=== PATIENT | female | born 1970 | race Caucasian/White ===

== ENCOUNTER 2018-02-07 21:38 | Observation (INO) | payer OTHER ==
[~2018-02-07] VITALS: Ht 165.1 cm; Wt 99.8 kg
[~2018-02-07 21:38] MED LIST: OXYC-323 PO
--- NOTE | 2018-02-07 22:29 | PHYS DOC ---
Adult General Chief Complaint Chief Complaint: SHORTNESS OF BREATH HPI HPI Patient is a 47 year old female who presents with SOB and epigastric pain. Patient had onset of intermittent SOB with epigastric pain two weeks ago. 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 Today while at work around 1pm, she had reonset SOB with epigastric pain which has progressed. Currently, her pain is 8/10 in severity. no vomiting or diarrhea. No fevers. No cough Review of Systems Review of Systems Constitutional: Denies fever or chills Eyes: Denies change in visual acuity, redness, or eye pain HENT: Denies nasal congestion or sore throat Respiratory: With shortness of breath, denies cough Cardiovascular: Denies chest pain or palpitations GI: With epigastric abdominal pain, nausea,no vomiting, bloody stools or diarrhea : Denies dysuria or hematuria Musculoskeletal: Denies back pain or joint pain Integument: Denies rash or skin lesions Neurologic: Denies headache, focal weakness or sensory changes Endocrine: Denies polyuria or polydipsia All other systems were reviewed and found to be within normal limits, except as documented in this note. Current Medications Current Medications Current Medications Medications (Trade) Dose Ordered Sig/Shane Start Time Stop Time Status Last Admin Dose Admin Fentanyl Citrate (Fentanyl 2ml Vial) 50 mcg 1X ONCE 02/07/18 22:45 02/07/18 22:46 DC 02/07/18 23:02 50 MCG Info (CONTRAST GIVEN -- Rx MONITORING) 1 each PRN DAILY PRN 02/08/18 00:45 02/09/18 17:08 DC Iohexol (Omnipaque 300 Mg/ml) 60 ml 1X ONCE 02/08/18 00:45 02/08/18 00:46 DC 02/08/18 00:57 60 ML Potassium Chloride (KCl Oral Soln) 40 meq 1X ONCE 02/08/18 02:30 02/08/18 02:31 DC 02/08/18 02:29 40 MEQ Allergies Allergies Physical Exam Physical Exam Constitutional: Well developed, well nourished, no acute distress, anxious with increased work of breathing, non-toxic appearance. HENT: Normocephalic, atraumatic, bilateral external ears normal, oropharynx moist, no oral exudates, nose normal. Eyes: PERRLA, EOMI, conjunctiva normal, no discharge. Neck: Normal range of motion, no tenderness, supple, no stridor. Cardiovascular:Heart rate regular rhythm, no murmur Lungs & Thorax: Bilateral breath sounds clear to auscultation Abdomen: Bowel sounds normal, soft, with LUQ and epigastric tenderness, no masses, no pulsatile masses. Skin: Warm, dry, no erythema, no rash. Back: No tenderness, no CVA tenderness. Extremities: No tenderness, no cyanosis, no clubbing, ROM intact, no edema. Neurologic: Alert and oriented X 3, normal motor function, normal sensory function, no focal deficits noted. Psychologic: Affect normal, judgement normal, mood normal. Current Patient Data Vital Signs Vital Signs Date Time Temp Pulse Resp B/P (MAP) Pulse Ox O2 Delivery O2 Flow Rate FiO2 02/08/18 02:38 65 20 143/66 (91) 100 Room Air 02/07/18 22:25 97.8 97.8 Lab Values Laboratory Tests Test 02/07/18 23:00 White Blood Count 15.4 x10^3/uL (4.0-11.0) H Red Blood Count 4.40 x10^6/uL (3.50-5.40) Hemoglobin 13.9 g/dL (12.0-15.5) Hematocrit 40.2 % (36.0-47.0) Mean Corpuscular Volume 91 fL (79-100) Mean Corpuscular Hemoglobin 32 pg (25-35) Mean Corpuscular Hemoglobin Concent 35 g/dL (31-37) Red Cell Distribution Width 13.3 % (11.5-14.5) Platelet Count 388 x10^3/uL (140-400) Neutrophils (%) (Auto) 68 % (31-73) Lymphocytes (%) (Auto) 26 % (24-48) Monocytes (%) (Auto) 4 % (0-9) Eosinophils (%) (Auto) 1 % (0-3) Basophils (%) (Auto) 0 % (0-3) Neutrophils # (Auto) 10.5 x10^3uL (1.8-7.7) H Lymphocytes # (Auto) 4.0 x10^3/uL (1.0-4.8) Monocytes # (Auto) 0.7 x10^3/uL (0.0-1.1) Eosinophils # (Auto) 0.2 x10^3/uL (0.0-0.7) Basophils # (Auto) 0.0 x10^3/uL (0.0-0.2) D-Dimer (Clare) < 0.27 ug/mlFEU Urine Collection Type Unknown Urine Color Yellow Urine Clarity Clear Urine pH 6.0 Urine Specific [place] 1.015 Urine Protein Negative mg/dL (NEG-TRACE) Urine Glucose (UA) Negative mg/dL (NEG) Urine Ketones (Stick) Negative mg/dL (NEG) Urine Blood Negative (NEG) Urine Nitrite Negative (NEG) Urine Bilirubin Negative (NEG) Urine Urobilinogen Dipstick 0.2 mg/dL (0.2 mg/dL) Urine Leukocyte Esterase Negative (NEG) Urine RBC 0 /HPF (0-2) Urine WBC 0 /HPF (0-4) Urine Squamous Epithelial Cells Few /LPF Urine Bacteria 0 /HPF (0-FEW) Urine Mucus Slight /LPF Sodium Level 132 mmol/L (136-145) L Potassium Level 3.3 mmol/L (3.5-5.1) L Chloride Level 102 mmol/L (98-107) Carbon Dioxide Level 21 mmol/L (21-32) Anion Gap 9 (6-14) Blood Urea Nitrogen 20 mg/dL (7-20) Creatinine 1.1 mg/dL (0.6-1.0) H Estimated GFR (Cockcroft-Gault) 53.0 BUN/Creatinine Ratio 18 (6-20) Glucose Level 229 mg/dL (70-99) H Calcium Level 9.5 mg/dL (8.5-10.1) Total Bilirubin 0.7 mg/dL (0.2-1.0) Aspartate Amino Transferase (AST) 13 U/L (15-37) L Alanine Aminotransferase (ALT) 23 U/L (14-59) Alkaline Phosphatase 76 U/L (46-116) Troponin I Quantitative < 0.017 ng/mL (0.000-0.055) ZG-Mwa-D-Type Natriuretic Peptide 29 pg/mL (0-124) Total Protein 7.4 g/dL (6.4-8.2) Albumin 3.6 g/dL (3.4-5.0) Albumin/Globulin Ratio 0.9 (1.0-1.7) L Lipase 128 U/L (73-393) Serum Test, Qualitative Negative (NEG) Laboratory Tests 02/07/18 23:00 Laboratory Tests 02/07/18 23:00 EKG EKG ECG 22:23 NSR @ [address]-T wave changes suggestive of ischemia 22:25 NSR @ [address]-T wave changes suggestive of ischemia Radiology/Procedures Radiology/Procedures [facility] [address] [place] [address] IMAGING REPORT Signed PATIENT: JULES VANCE ACCOUNT: [id number] : 1970 LOCATION: ER AGE: 47 SEX: F EXAM STATUS: REG ER ORD. PHYSICIAN: HANY MARCIAL MD REASON: epigastric pain PROCEDURE: CT ABD PELV W/ IV CONTRST ONLY PQRS Compliance statement: One or more of the following individualized dose reduction techniques were utilized for this examination: 1. Automated exposure control. 2. Adjustment of the mA and/or kV according to patient size. 3. Use of iterative reconstruction technique. Indication:EPIGASTRIC PAIN; OMNI 300, 60ML TECHNIQUE: CT abdomen and pelvis with IV contrast with multiplanar reformats. COMPARISON: None FINDINGS: Heart is normal in size. No pericardial or pleural effusion. Clear lung bases. Liver, spleen, pancreas, adrenals within normal limits. Status post cholecystectomy. No nephrolithiasis or hydronephrosis. No enlarged retroperitoneal or pelvic adenopathy. No free pelvic fluid or ascites. No bowel obstruction. Normal appendix. No pneumoperitoneum. Uterus is present. Urinary bladder within normal limits. No suspicious bony lesion. IMPRESSION: No acute findings. Electronically signed by: Oscar Cancino DO (02/08/2018 1:02 AM) [facility] DICTATED and SIGNED BY: OSCAR CANCINO DO DATE: 02/08/18 0059 [facility] [address] [place] [address] IMAGING REPORT Signed PATIENT: JULES VANCE ACCOUNT: [id number] : 1970 LOCATION: ER AGE: 47 SEX: F EXAM STATUS: REG ER ORD. PHYSICIAN: HANY MARCIAL MD REASON: SOB PROCEDURE: CHEST AP ONLY PROCEDURE: CHEST AP ONLY CLINICAL INDICATION: Chest pain x a week COMPARISON: None FINDINGS: No pneumothorax identified. Cardiac and mediastinal contours unremarkable. No pulmonary consolidation or acute airspace disease. No acute osseous abnormalities identified. IMPRESSION: No pulmonary consolidation or acute airspace disease. Electronically signed by: Oscar Cancino DO (02/08/2018 3:35 AM) [facility] DICTATED and SIGNED BY: OSCAR CANCINO DO DATE: 02/08/18 0334 Course & Med Decision Making Course & Med Decision Making Pertinent Labs and Imaging studies reviewed. (See chart for details) Emergency Department course Patient present with epigastric pain and SOB DDx-ACS, biliary colic, GERD, Pancreatitis, obstruction Patient presented with severe shortness of breath. ECG and troponin showed no acute coronary syndrome. Labs remarkable for leukocytosis. Abdominal pelvic CT scan showed no evidence of acute process. 02:55 Patient has persistent complaints of shortness of breath. Records reviewed from [facility] admission 02/03/2018. Patient had CT of the chest which was unremarkable. Patient had echocardiogram was unremarkable. 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 Patient admitted to medicine for further evaluation. 06:[address] Hill who agreed with admission. Dragon Disclaimer Dragon Disclaimer This electronic medical record was generated, in whole or in part, using a voice recognition dictation system. Departure Departure Impression: Primary Impression: SOB (shortness of breath) Additional Impressions: Epigastric abdominal pain Leukocytosis Disposition: ADMITTED INPATIENT Admitting Physician: Other (Carlin Hill MD) Condition: STABLE Referrals: NOAH MULTANI (PCP) Problem Qualifiers HANY MARCIAL MD Feb 07, 2018 22:29
[2018-02-07] MEDS ORDERED: fentaNYL PF VIAL 100 MCG/2 ML VIAL IV ONE (22:45)
[2018-02-07 23:09] LABS: BASO % 0 % (0-3); EOS # 0.2 x10^3/uL (0.0-0.7); EOS % 1 % (0-3); HEMATOCRIT 40.2 % (36.0-47.0); HEMOGLOBIN 13.9 g/dL (12.0-15.5); LYMPH % 26 % (24-48); MEAN CORPUSCULAR HEMOGLOBIN 32 pg (25-35); MEAN CORPUSCULAR HGB CONC 35 g/dL (31-37); MEAN CORPUSCULAR VOLUME 91 fL (79-100); MONO # 0.7 x10^3/uL (0.0-1.1); MONO % 4 % (0-9); NEUT # 10.5 x10^3uL (1.8-7.7); NEUT % 68 % (31-73); PLATELET COUNT 388 x10^3/uL (140-400); RED CELL DISTRIBUTION WIDTH 13.3 % (11.5-14.5); WHITE BLOOD COUNT 15.4 x10^3/uL (4.0-11.0)
[2018-02-07 23:12] LABS: BILIRUBIN,URINE NEGATIVE (NEG); CLARITY,URINE CLEAR; COLOR,URINE YELLOW; NITRITE,URINE NEGATIVE (NEG); PROTEIN,URINE NEGATIVE (NEG-TRACE); UROBILINOGEN,URINE 0.2 mg/dL (0.2 mg/dL)
[2018-02-07 23:18] LABS: CALCIUM 9.5 mg/dL (8.5-10.1); CREATININE 1.1 mg/dL (0.6-1.0); POTASSIUM 3.3 mmol/L (3.5-5.1)
[2018-02-07 23:24] LABS: BACTERIA,URINE 0 /HPF (0-FEW); RBC,URINE 0 /HPF (0-2); SQUAMOUS EPITHELIAL CELL,UR FEW /LPF; WBC,URINE 0 /HPF (0-4)
--- NOTE | 2018-02-07 23:24 | EKG ---
[facility] [address] [place] [address] Test Date: 2018-02-07 Test Time: 22:25:21 Pat Name: JULES VANCE Department: Room: Gender: F Entertainment Director: : 1970 Requested By: HANY MARCIAL Order Number: [id number] Reading MD: Santhosh Puente Measurements Intervals [place] Rate: 64 P: 36 MN: 148 QRS: 45 QRSD: 74 T: 38 QT: 422 QTc: 439 Interpretive Statements SINUS RHYTHM NORMAL ECG Compared to ECG 07/28/2015 10:36:40 Sinus bradycardia no longer present Electronically Signed On 02-08-2018 15:28:59 CDT by Santhosh Puente
[2018-02-07 23:25] LABS: ALBUMIN 3.6 g/dL (3.4-5.0); ALBUMIN/GLOBULIN RATIO 0.9 (1.0-1.7); PREG TEST PT QUAL NEGATIVE (NEG); TOTAL BILIRUBIN 0.7 mg/dL (0.2-1.0); TOTAL PROTEIN 7.4 g/dL (6.4-8.2)
[2018-02-08] MEDS ORDERED: IOHEXOL 300 MG/ML 100ML VIAL. IV ONE (00:45)
[2018-02-08] MEDS ORDERED: CONTRAST GIVEN. MC PRN (00:45)
--- NOTE | 2018-02-08 01:06 | RAD ---
PQRS Compliance statement: One or more of the following individualized dose reduction techniques were utilized for this examination: 1. Automated exposure control. 2. Adjustment of the mA and/or kV according to patient size. 3. Use of iterative reconstruction technique. Indication:EPIGASTRIC PAIN; OMNI 300, 60ML TECHNIQUE: CT abdomen and pelvis with IV contrast with multiplanar reformats. COMPARISON: None FINDINGS: Heart is normal in size. No pericardial or pleural effusion. Clear lung bases. Liver, spleen, pancreas, adrenals within normal limits. Status post cholecystectomy. No nephrolithiasis or hydronephrosis. No enlarged retroperitoneal or pelvic adenopathy. No free pelvic fluid or ascites. No bowel obstruction. Normal appendix. No pneumoperitoneum. Uterus is present. Urinary bladder within normal limits. No suspicious bony lesion. IMPRESSION: No acute findings. Electronically signed by: Oscar Cancino DO (02/08/2018 1:02 AM) [facility]
[2018-02-08] MEDS ORDERED: POTASSIUM CHLORIDE 20 MEQ/15 ML ORAL LIQUID. PO ONE (02:30)
--- NOTE | 2018-02-08 03:38 | RAD ---
PROCEDURE: CHEST AP ONLY CLINICAL INDICATION: Chest pain x a week COMPARISON: None FINDINGS: No pneumothorax identified. Cardiac and mediastinal contours unremarkable. No pulmonary consolidation or acute airspace disease. No acute osseous abnormalities identified. IMPRESSION: No pulmonary consolidation or acute airspace disease. Electronically signed by: Oscar Cancino DO (02/08/2018 3:35 AM) [facility]
[2018-02-08] MEDS ORDERED: ASPIRIN CHEWABLE 81 MG TABLET. PO ONE (03:45)
[2018-02-08 05:15] VITALS: BP 123/78
[2018-02-08] MEDS ORDERED: RANO500T2 PO (06:03)
[2018-02-08] MEDS ORDERED: ASPI81TA50 PO (06:03)
[2018-02-08] MEDS ORDERED: METF500T16 PO (06:03)
[2018-02-08] MEDS ORDERED: CETI10TA16 PO (06:03)
[2018-02-08] MEDS ORDERED: PROAIR HFA8.5 GM INH (06:03)
[2018-02-08] MEDS ORDERED: BUPR150T8 PO (06:03)
[2018-02-08] MEDS ORDERED: ATOR20TA58 PO (06:03)
[2018-02-08 07:00] VITALS: BP 123/67
[2018-02-08] MEDS ORDERED: CALCIUM CARBONATE 500 MG TAB.CHEW PO PRN (09:00)
[2018-02-08] MEDS ORDERED: ACETAMINOPHEN/CODEINE 300/30MG TABLET. PO PRN (09:00)
[2018-02-08] MEDS ORDERED: ACETAMINOPHEN 500 MG TABLET PO PRN (09:00)
[2018-02-08] MEDS ORDERED: ONDANSETRON ODT 4 MG TAB.RAPDIS. PO PRN (09:00)
[2018-02-08] MEDS ORDERED: ONDANSETRON PF 4 MG/2 ML VIAL. IV PRN (09:00)
[2018-02-08] MEDS ORDERED: INFLUENZA VAX SCREEN BY RX. MC ONE (09:00)
[2018-02-08] MEDS ORDERED: LIDO:MAALOX 1:1 20 ML SINGLE DOSE. PO PRN (09:15)
[2018-02-08] MEDS ORDERED: PANTOPRAZOLE 40 MG TABLET.DR. PO ONE (09:15)
[2018-02-08] MEDS ORDERED: NON FORMULARY ITEM (Albuterol Sulfate (Proair Hfa Inhaler) 2 PUFF) INH PRN (09:15)
[2018-02-08] MEDS ORDERED: ALBUTEROL SULFATE 2.5 MG/3 ML NEBU. NEB PRN (09:30)
--- NOTE | 2018-02-08 11:01 | PDOC2 ---
[facility] ASSISTANT 02/08/18 1059: CARDIAC CONSULT DATE OF CONSULT Date of Consult DATE: 02/08/18 TIME: 10:28 REASON FOR CONSULT Reason for Consult: SOB REFERRING PHYSICIAN Referring Physician: Braden SOURCE Source: Chart review, Patient HISTORY OF PRESENT ILLNESS HISTORY OF PRESENT ILLNESS This is an anxious 47 yo female admitted for complains of chest pain. She was at [place] over a week ago to which she was evaluated by my colleague and testings have been unremarkable at that time cardiac ibrahim and outpt MPI was recommended. She presents her overnight due to persistent chest tightness. She has been having dry cough, no fever in the last 2 weeks. Associated with mid chest tightness but no jaw or arm radiation. Reports some SOA and some nausea. Denies any heartburn or significant wheezing but throughout this time she has been smoking. 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 Denies any falls or injury or any past arrhythmias. PAST MEDICAL HISTORY Cardiovascular: HTN, Hyperlipidemia Pulmonary: Asthma CENTRAL NERVOUS SYSTEM: Other (No pertinent history) GI: GERD Heme/Onc: No pertinent hx Hepatobiliary: Cholelithiasis Psych: Anxiety Endocrine: Diabetes (2) PAST SURGICAL HISTORY Past Surgical History: Cholecystectomy, Other ([facility] 2016) FAMILY HISTORY Family History: Diabetes SOCIAL HISTORY Smoke: <1 pack per day ALCOHOL: none Drugs: None Lives: with Family CURRENT MEDICATIONS CURRENT MEDICATIONS Current Medications Medications (Trade) Dose Ordered Sig/Shane Route PRN Reason Start Time Stop Time Status Last Admin Dose Admin Fentanyl Citrate (Fentanyl 2ml Vial) 50 mcg 1X ONCE IV 02/07/18 22:45 02/07/18 22:46 DC 02/07/18 23:02 Iohexol (Omnipaque 300 Mg/ml) 60 ml 1X ONCE IV 02/08/18 00:45 02/08/18 00:46 DC 02/08/18 00:57 Potassium Chloride (KCl Oral Soln) 40 meq 1X ONCE PO 02/08/18 02:30 02/08/18 02:31 DC 02/08/18 02:29 Aspirin (Children'S Aspirin) 324 mg 1X ONCE PO 02/08/18 03:45 02/08/18 03:46 DC 02/08/18 04:51 ALLERGIES ALLERGIES: Coded Allergies: No Known Drug Allergies (Unverified , 07/30/15) ROS Review of System 14 point ROS evaluated with pertinent positives noted per HPI PHYSICAL EXAM General: Alert, Oriented X3, Cooperative, No acute distress HEENT: Atraumatic, Mucous membr. moist/pink Lungs: Clear to auscultation, Normal air movement Heart: Regular rate (SR), Normal S1, Normal S2, Other (2/6 systolic murmur to LLS border) Abdomen: Soft, No tenderness Extremities: No cyanosis, No edema Skin: No breakdown, No significant lesion Neuro: Normal speech, Sensation intact Psych/Mental Status: Mental status NL, Other (anxious) MUSCULOSKELETAL: Osteoarthritic changes both hands VITALS VITALS Vital Signs Date Time Temp Pulse Resp B/P (MAP) Pulse Ox O2 Delivery O2 Flow Rate FiO2 02/08/18 08:42 Room Air 02/08/18 07:00 98.1 68 18 123/67 (85) 95 98.1 LABS Lab: Laboratory Tests Test 02/07/18 23:00 02/08/18 07:12 White Blood Count 15.4 x10^3/uL (4.0-11.0) Red Blood Count 4.40 x10^6/uL (3.50-5.40) Hemoglobin 13.9 g/dL (12.0-15.5) Hematocrit 40.2 % (36.0-47.0) Mean Corpuscular Volume 91 fL (79-100) Mean Corpuscular Hemoglobin 32 pg (25-35) Mean Corpuscular Hemoglobin Concent 35 g/dL (31-37) Red Cell Distribution Width 13.3 % (11.5-14.5) Platelet Count 388 x10^3/uL (140-400) Neutrophils (%) (Auto) 68 % (31-73) Lymphocytes (%) (Auto) 26 % (24-48) Monocytes (%) (Auto) 4 % (0-9) Eosinophils (%) (Auto) 1 % (0-3) Basophils (%) (Auto) 0 % (0-3) Neutrophils # (Auto) 10.5 x10^3uL (1.8-7.7) Lymphocytes # (Auto) 4.0 x10^3/uL (1.0-4.8) Monocytes # (Auto) 0.7 x10^3/uL (0.0-1.1) Eosinophils # (Auto) 0.2 x10^3/uL (0.0-0.7) Basophils # (Auto) 0.0 x10^3/uL (0.0-0.2) D-Dimer (Clare) < 0.27 ug/mlFEU Urine Collection Type Unknown Urine Color Yellow Urine Clarity Clear Urine pH 6.0 Urine Specific [place] 1.015 Urine Protein Negative mg/dL (NEG-TRACE) Urine Glucose (UA) Negative mg/dL (NEG) Urine Ketones (Stick) Negative mg/dL (NEG) Urine Blood Negative (NEG) Urine Nitrite Negative (NEG) Urine Bilirubin Negative (NEG) Urine Urobilinogen Dipstick 0.2 mg/dL (0.2 mg/dL) Urine Leukocyte Esterase Negative (NEG) Urine RBC 0 /HPF (0-2) Urine WBC 0 /HPF (0-4) Urine Squamous Epithelial Cells Few /LPF Urine Bacteria 0 /HPF (0-FEW) Urine Mucus Slight /LPF Sodium Level 132 mmol/L (136-145) Potassium Level 3.3 mmol/L (3.5-5.1) Chloride Level 102 mmol/L (98-107) Carbon Dioxide Level 21 mmol/L (21-32) Anion Gap 9 (6-14) Blood Urea Nitrogen 20 mg/dL (7-20) Creatinine 1.1 mg/dL (0.6-1.0) Estimated GFR (Cockcroft-Gault) 53.0 BUN/Creatinine Ratio 18 (6-20) Glucose Level 229 mg/dL (70-99) Calcium Level 9.5 mg/dL (8.5-10.1) Total Bilirubin 0.7 mg/dL (0.2-1.0) Aspartate Amino Transf (AST/SGOT) 13 U/L (15-37) Alanine Aminotransferase (ALT/SGPT) 23 U/L (14-59) Alkaline Phosphatase 76 U/L (46-116) Troponin I Quantitative < 0.017 ng/mL (0.000-0.055) AV-Kyk-S-Type Natriuretic Peptide 29 pg/mL (0-124) Total Protein 7.4 g/dL (6.4-8.2) Albumin 3.6 g/dL (3.4-5.0) Albumin/Globulin Ratio 0.9 (1.0-1.7) Lipase 128 U/L (73-393) Serum Test, Qualitative Negative (NEG) Glucose (Fingerstick) 142 mg/dL (70-99) IMAGES IMAGES FINDINGS: The central airways are patent. Aberrant right subclavian artery is identified coursing posterior to the esophagus. There is no evidence of filling defect identified in the main pulmonary arterial trunk and right and left main pulmonary arteries and the visualized lobar, segmental branches of the pulmonary arteries. Coronary artery calcifications. The caliber of the aorta grossly appears unremarkable. There is a 7 mm round nodule identified in the right upper lobe of the lung similar to prior exam. Tiny cysts identified in the left upper lobe of the lungs similar to prior exam. The visualized liver, spleen, adrenals grossly appears unremarkable Cholecystectomy clips identified. Mild degenerative changes thoracic spine. IMPRESSION: 1. No evidence of pulmonary embolism. 2. Stable 7 mm nodule right upper lobe of the lung. 3. 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 DATE: 02/03/18 0123 ECHOCARDIOGRAM ECHOCARDIOGRAM <Conclusion> The left ventricular systolic function is normal. The Ejection Fraction is 55-60%. There is normal LV segmental wall motion. Trace to mild mitral regurgitation. Trace tricuspid regurgitation. The PA pressure was estimated at 26 mmHg. There is no evidence of significant pericardial effusion. DATE: 02/03/18 1541 HEART CATH HEART CATH HEMODYNAMICS: LVEDP 20 mm Hg No gradient on LV to aortic pullback. CORONARY ANGIOGRAPHY: LM is a large caliber vessel with normal angiographic appearance. LAD is a moderate caliber vessel with a small focal mid myocardial bridge with possible minimal spasm. Otherwise, the vessel has normal angiographic appearance. Post-NTG, the mid segment appeared to demonstrate less degree of spasm. D1 is a small caliber vessel with normal angiographic appearance. LCx is a moderate caliber vessel with normal angiogarphic appearance. OM1 is a moderate sized vessel with normal angiographic appearance. RCA is a moderate caliber dominant vessel with normal angiographic appearance. RPDA is a small to moderate sized vessel with normal angiographic appearance. Conclusion 1. Mildly elevated left sided filling pressures. 2. Normal angiographic appearance of the coronary arteries. Recommendations Aggressive Medical Therapy DATE: 07/28/15 4895 ASSESSMENT/PLAN ASSESSMENT/PLAN 1. Chest pain: troponin nml. EKG NSR. Possibly from #2 with vasopasm. Possible reactive airway component with GERD 2. Known small focal LAD myocardial bridging: noted in [facility] 07/2015 with vasopasm. 3. HTN: controlled 4. DM2/HLP 5. Obesity 6. Hypokalemia 7. Leukocytosis: per PCP 8. Tobaccoism 9. Due for liposuction next week Recommendations 1. Replace K 2. MPI today. Started on ranexa over a week ago. Will consider adding imdur pending MPI result 3. Discussed importance of smoking cessation 4. ASA, statin. 5. Wt loss, avoidance of excessive caffeinated beverages. ELHAM SAMANIEGO MD 02/08/182124: CARDIAC CONSULT ASSESSMENT/PLAN ASSESSMENT/PLAN Pt. seen and examined. Agree with above Personal Counselor note. No significant CAD on prior cath. normal MPI. Risk factor modification. Supportive care. HOWARD QUINONES APRN Feb 08, 2018 10:59 ELHAM SAMANIEGO MD Feb 08, 2018 21:25
--- NOTE | 2018-02-08 11:01 | PDOC2 ---
GI CONSULT Reason For Consult: epigastric pain, neg cardiac workup at [facility] HPI: HPI: 47 y/o female w/ 2 weeks of pain ("squeezing pressure") under left breast radiating through to back w/ associated shortness of breath, racing heart, and shaking. Hard to say which symptom comes first, but she is most concerned w/ shortness of breath. All symptoms are worse w/ exertion and "sitting up." Unclear if any alleviating factors. Re: precipitating events, had Botox a couple weeks ago. Had normal echocardiogram and chest CT last week. 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 GI-ibrahim, she denies reflux/heartburn, indigestion, dysphagia, n/v, diarrhea, constipation, hematochezia, melena, bloating, or change in appetite. Intentionally lost 12 pounds a couple months ago. Tried "a colon clean out" just in case that would help her symptoms - was ineffective. No previous EGD or colonoscopy. No pancreas or liver history. She also quit smoking last week and started Wellbutrin. She is tearful and anxious during the interview. Family member says she can only walk a few steps before becoming out of breath. PMH: PMH: anxiety, COPD, pre-DM, HLD, cholecystectomy (GB EF 32%, path w/ chronic cholecystitis, IOC normal), left knee surgery, wisdom teeth removal, endometrial ablation, D&C x 4, tubal ligation, heart cath FH: Family History: No pertinent hx (denies GI cancers) Social History: Smoke: Quit ALCOHOL: none ROS: GEN: Denies fevers, chills, sweats HEENT: Denies blurred vision, sore throat CV: Denies chest pain RESP: +SOA GI: Per HPI : Denies hematuria, dysuria ENDO: +weight loss NEURO: Denies confusion, dizziness MSK: Denies weakness, joint pain/swelling SKIN: Denies jaundice, pruritus Vitals: Vitals: Vital Signs Date Time Temp Pulse Resp B/P (MAP) Pulse Ox O2 Delivery O2 Flow Rate FiO2 02/08/18 08:42 Room Air 02/08/18 07:00 98.1 68 18 123/67 (85) 95 98.1 Labs: Labs: Laboratory Tests Test 02/07/18 23:00 02/08/18 07:12 White Blood Count 15.4 x10^3/uL (4.0-11.0) Red Blood Count 4.40 x10^6/uL (3.50-5.40) Hemoglobin 13.9 g/dL (12.0-15.5) Hematocrit 40.2 % (36.0-47.0) Mean Corpuscular Volume 91 fL (79-100) Mean Corpuscular Hemoglobin 32 pg (25-35) Mean Corpuscular Hemoglobin Concent 35 g/dL (31-37) Red Cell Distribution Width 13.3 % (11.5-14.5) Platelet Count 388 x10^3/uL (140-400) Neutrophils (%) (Auto) 68 % (31-73) Lymphocytes (%) (Auto) 26 % (24-48) Monocytes (%) (Auto) 4 % (0-9) Eosinophils (%) (Auto) 1 % (0-3) Basophils (%) (Auto) 0 % (0-3) Neutrophils # (Auto) 10.5 x10^3uL (1.8-7.7) Lymphocytes # (Auto) 4.0 x10^3/uL (1.0-4.8) Monocytes # (Auto) 0.7 x10^3/uL (0.0-1.1) Eosinophils # (Auto) 0.2 x10^3/uL (0.0-0.7) Basophils # (Auto) 0.0 x10^3/uL (0.0-0.2) D-Dimer (Clare) < 0.27 ug/mlFEU Urine Collection Type Unknown Urine Color Yellow Urine Clarity Clear Urine pH 6.0 Urine Specific [place] 1.015 Urine Protein Negative mg/dL (NEG-TRACE) Urine Glucose (UA) Negative mg/dL (NEG) Urine Ketones (Stick) Negative mg/dL (NEG) Urine Blood Negative (NEG) Urine Nitrite Negative (NEG) Urine Bilirubin Negative (NEG) Urine Urobilinogen Dipstick 0.2 mg/dL (0.2 mg/dL) Urine Leukocyte Esterase Negative (NEG) Urine RBC 0 /HPF (0-2) Urine WBC 0 /HPF (0-4) Urine Squamous Epithelial Cells Few /LPF Urine Bacteria 0 /HPF (0-FEW) Urine Mucus Slight /LPF Sodium Level 132 mmol/L (136-145) Potassium Level 3.3 mmol/L (3.5-5.1) Chloride Level 102 mmol/L (98-107) Carbon Dioxide Level 21 mmol/L (21-32) Anion Gap 9 (6-14) Blood Urea Nitrogen 20 mg/dL (7-20) Creatinine 1.1 mg/dL (0.6-1.0) Estimated GFR (Cockcroft-Gault) 53.0 BUN/Creatinine Ratio 18 (6-20) Glucose Level 229 mg/dL (70-99) Calcium Level 9.5 mg/dL (8.5-10.1) Total Bilirubin 0.7 mg/dL (0.2-1.0) Aspartate Amino Transf (AST/SGOT) 13 U/L (15-37) Alanine Aminotransferase (ALT/SGPT) 23 U/L (14-59) Alkaline Phosphatase 76 U/L (46-116) Troponin I Quantitative < 0.017 ng/mL (0.000-0.055) JX-Wsb-R-Type Natriuretic Peptide 29 pg/mL (0-124) Total Protein 7.4 g/dL (6.4-8.2) Albumin 3.6 g/dL (3.4-5.0) Albumin/Globulin Ratio 0.9 (1.0-1.7) Lipase 128 U/L (73-393) Serum Test, Qualitative Negative (NEG) Glucose (Fingerstick) 142 mg/dL (70-99) Allergies: Coded Allergies: No Known Drug Allergies (Unverified , 07/30/15) Medications: Current Medications Medications (Trade) Dose Ordered Sig/Shane Route PRN Reason Start Time Stop Time Status Last Admin Dose Admin Fentanyl Citrate (Fentanyl 2ml Vial) 50 mcg 1X ONCE IV 02/07/18 22:45 02/07/18 22:46 DC 02/07/18 23:02 Iohexol (Omnipaque 300 Mg/ml) 60 ml 1X ONCE IV 02/08/18 00:45 02/08/18 00:46 DC 02/08/18 00:57 Potassium Chloride (KCl Oral Soln) 40 meq 1X ONCE PO 02/08/18 02:30 02/08/18 02:31 DC 02/08/18 02:29 Aspirin (Children'S Aspirin) 324 mg 1X ONCE PO 02/08/18 03:45 02/08/18 03:46 DC 02/08/18 04:51 Imaging: Imaging: CT A/P IMPRESSION: No acute findings. CXR IMPRESSION: No pulmonary consolidation or acute airspace disease. PE: GEN: mild distress HEENT: Atraumatic, PERRL LUNGS: tachypneic HEART: RRR ABD: NABS, S/ND - tender under left breast over rib EXTREMITY: No edema SKIN: No rashes, no jaundice NEURO/PSYCH: A & O 3, tearful, anxious A/P: A/P: Pain under left breast, SOA, racing heart, shaking, anxiety S/p cholecystectomy CRC screen - average risk DM -- SOA w/ pain under left breast - not sure if this is a GI issue - ?related to myocardial bridge on heart cath in 2016 - cardiology to see, discussion for stress test Reviewed w/ Dr. Pizano - check abd US. MARA SHEPARD Feb 08, 2018 10:59
--- NOTE | 2018-02-08 11:10 | PDOC1 ---
History and Physical Date of Admission Date of Admission DATE: 02/08/18 TIME: 11:05 Identification/Chief Complaint Chief Complaint Chest pain/chest heaviness Source Source: Caregiver, Chart review, Patient History of Present Illness History of Present Illness 47-year-old female, 6- 8 cigs per day, social drinker, family history of CAD at the mother at age 60s. Comes in because of chest pressure she describes midsternal chest heavy, radiates to the back. Some shortness of breath but no diaphoresis. NO pre syncopal sxs. She sounds like has had a workup at [facility] last she was admitted overnight there with normal enzymes EKG and normal CAT scan of the chest. She comes in because of epigastric pain too but CT of the abdomen and pelvis is quite unremarkable. She initially wanted to transfer to [facility] but there were no beds hence she was agreeable to staying here. She had and [facility] in July 2015 which she was told there was some myocardial bridging?. In any case she is quite frustrated and emotional during my visit, she wants to get to the bottom of things. Fentanyl did not relieve her pain. She did not take any nitrates or morphine. She was actually scheduled for outpatient MPI either yesterday or today. Cardiology has seen. For MPI today. The rest of the labs only remarkable for mild leukocytosis at 15.4, mild hypokalemia 3.3. Mild hyponatremia 134, creatinine 1.1. Heavy education counseling etc. done during my visit Past Medical History Cardiovascular: HTN, Hyperlipidemia Pulmonary: Asthma CENTRAL NERVOUS SYSTEM: Other (No pertinent history) GI: GERD Heme/Onc: No pertinent hx Hepatobiliary: Cholelithiasis Psych: Anxiety Endocrine: Diabetes (2) Past Surgical History Past Surgical History: Cholecystectomy, Other ([facility] 2016) Family History Family History: Diabetes, Heart Disease, High Cholestrol, Hypertension Social History Smoke: <1 pack per day ALCOHOL: social Drugs: None Current Problem List Problem List Problems Medical Problems: (1) Epigastric abdominal pain Status: Acute (2) Leukocytosis Status: Acute (3) SOB (shortness of breath) Status: Acute Current Medications Current Medications Current Medications Fentanyl Citrate (Fentanyl 2ml Vial) 50 mcg 1X ONCE IV Last administered on at 23:02; Start 02/07/18 at 22:45; Stop 02/07/18 at 22:46; Status DC Iohexol (Omnipaque 300 Mg/ml) 60 ml 1X ONCE IV Last administered on 02/08/18at 00:57; Start 02/08/18 at 00:45; Stop 02/08/18 at 00:46; Status DC Info (CONTRAST GIVEN -- Rx MONITORING) 1 each PRN DAILY PRN MC SEE COMMENTS; Start 02/08/18 at 00:45; Stop 02/10/18 at 00:44 Potassium Chloride (KCl Oral Soln) 40 meq 1X ONCE PO Last administered on 02/08at 02:29; Start 02/08/18 at 02:30; Stop 02/08/18 at 02:31; Status DC Aspirin (Children'S Aspirin) 324 mg 1X ONCE PO Last administered on 02/08/18at 04:51; Start 02/08/18 at 03:45; Stop 02/08/18 at 03:46; Status DC Info (FLU VACCINE SCREEN per RX) 1 each 1X ONCE MC ; Start 02/08/18 at 09:00; Stop 02/08/18 at 09:01; Status UNV Influenza Virus Vaccine (Afluria Trivalent [id number] Syringe) 0.5 ml ONCE ONCE VAX IM ; Start 02/08/18 at 09:00; Stop 02/08/18 at 09:01; Status DC Calcium Carbonate/ Glycine (Tums) 500 mg PRN AFTMEALHC PRN PO INDIGESTION; Start 02/08/18 at 09:00 Acetaminophen (Tylenol) 500 mg PRN Q6HRS PRN PO MILD PAIN / TEMP; Start at 09:00 Acetaminophen/ Codeine Phosphate (Tylenol #3) 1 tab PRN Q6HRS PRN PO MODERATE PAIN; Start 02/08/18 at 09:00 Ondansetron HCl (Zofran) 4 mg PRN Q6HRS PRN IV NAUSEA/VOMITING; Start 02/08/18 at 09:00 Ondansetron HCl (Zofran Odt) 4 mg PRN Q6HRS PRN PO NAUSEA/VOMITING; Start 02/08 at 09:00 Aspirin (Ecotrin) 81 mg DAILY PO ; Start 02/08/18 at 10:00 Atorvastatin Calcium (Lipitor) 20 mg QHS PO ; Start 02/08/18 at 21:00 Bupropion HCl (Wellbutrin Sr) 150 mg BID PO ; Start 02/08/18 at 10:00 Cetirizine HCl (ZyrTEC) 10 mg DAILY PO ; Start 02/08/18 at 10:00 Ranolazine (Ranexa) 500 mg BID PO ; Start 02/08/18 at 10:00 Non-Formulary Medication (Albuterol Sulfate (Proair Hfa Inhaler)) 2 puff PRN Q4HRS PRN INH SHORTNESS OF BREATH; Start 02/08/18 at 09:15; Status UNV Metformin HCl (Glucophage) 1,000 mg DAILYAC PO ; Start 02/08/18 at 10:00 Pantoprazole Sodium (Protonix) 40 mg 1X ONCE PO ; Start 02/08/18 at 09:15; Stop 02/08/18 at 09:22; Status DC Multi-Ingredient Mouthwash/Gargle (Gi Cocktail) 20 ml PRN Q15MIN PRN PO CHEST PAIN; Start 02/08/18 at 09:15 Albuterol Sulfate (Ventolin Neb Soln) 2.5 mg PRN Q6HRS PRN NEB SHORTNESS OF BREATH; Start 02/08/18 at 09:30 Active Scripts Active Reported Proair Hfa Inhaler (Albuterol Sulfate) 8.5 Gm Hfa.aer.ad 2 Puff INH PRN Q4HRS PRN Cetirizine Hcl 10 Mg Tablet 1 Tab PO DAILY Ranexa (Ranolazine) 500 Mg Tab.er.12h 1 Tab PO BID Atorvastatin Calcium 20 Mg Tablet 1 Tab PO DAILY Aspir-Low (Aspirin) 81 Mg Tablet.dr 1 Tab PO DAILY Metformin Hcl 500 Mg Tablet 1,000 Mg PO DAILYAC Wellbutrin Sr (Bupropion Hcl) 150 Mg Tablet.er 1 Tab PO BID Allergies Allergies: Coded Allergies: No Known Drug Allergies (Unverified , 07/30/15) ROS Review of System As per history of present illness, the rest of ROS 14 point negative Physical Exam General: Alert, Oriented X3, Cooperative, No acute distress, Other (teary-eyed , emotional during my visit) HEENT: Atraumatic, PERRLA, EOMI Lungs: Clear to auscultation, Normal air movement Heart: S1S2, RRR, no thrills, no rubs, no gallops, no murmurs Cardiovascular: S1, S2 Breasts: Normal, Rt breast nml w/o mass, Lt breast nml w/o mass, Nipples normal Abdomen: Normal bowel sounds, Soft, No tenderness, No hepatosplenomegaly, No masses Rectal Exam: not examined PELVIC: Nml ext genitalia Extremities: No clubbing, No cyanosis, No edema, Normal pulses, No tenderness/ swelling Skin: No rashes, No breakdown, No significant lesion Neuro: Normal gait, Normal speech, Strength at 5/5 X4 ext, Normal tone, Sensation intact, Cranial nerves 3-12 NL, Reflexes 2+ Psych/Mental Status: Mental status NL, Mood NL Vitals Vitals Vital Signs Date Time Temp Pulse Resp B/P (MAP) Pulse Ox O2 Delivery O2 Flow Rate FiO2 02/08/18 08:42 Room Air 02/08/18 07:00 98.1 68 18 123/67 (85) 95 98.1 Labs Labs Laboratory Tests Test 02/07/18 23:00 02/08/18 07:12 White Blood Count 15.4 x10^3/uL (4.0-11.0) Red Blood Count 4.40 x10^6/uL (3.50-5.40) Hemoglobin 13.9 g/dL (12.0-15.5) Hematocrit 40.2 % (36.0-47.0) Mean Corpuscular Volume 91 fL (79-100) Mean Corpuscular Hemoglobin 32 pg (25-35) Mean Corpuscular Hemoglobin Concent 35 g/dL (31-37) Red Cell Distribution Width 13.3 % (11.5-14.5) Platelet Count 388 x10^3/uL (140-400) Neutrophils (%) (Auto) 68 % (31-73) Lymphocytes (%) (Auto) 26 % (24-48) Monocytes (%) (Auto) 4 % (0-9) Eosinophils (%) (Auto) 1 % (0-3) Basophils (%) (Auto) 0 % (0-3) Neutrophils # (Auto) 10.5 x10^3uL (1.8-7.7) Lymphocytes # (Auto) 4.0 x10^3/uL (1.0-4.8) Monocytes # (Auto) 0.7 x10^3/uL (0.0-1.1) Eosinophils # (Auto) 0.2 x10^3/uL (0.0-0.7) Basophils # (Auto) 0.0 x10^3/uL (0.0-0.2) D-Dimer (Clare) < 0.27 ug/mlFEU Urine Collection Type Unknown Urine Color Yellow Urine Clarity Clear Urine pH 6.0 Urine Specific [place] 1.015 Urine Protein Negative mg/dL (NEG-TRACE) Urine Glucose (UA) Negative mg/dL (NEG) Urine Ketones (Stick) Negative mg/dL (NEG) Urine Blood Negative (NEG) Urine Nitrite Negative (NEG) Urine Bilirubin Negative (NEG) Urine Urobilinogen Dipstick 0.2 mg/dL (0.2 mg/dL) Urine Leukocyte Esterase Negative (NEG) Urine RBC 0 /HPF (0-2) Urine WBC 0 /HPF (0-4) Urine Squamous Epithelial Cells Few /LPF Urine Bacteria 0 /HPF (0-FEW) Urine Mucus Slight /LPF Sodium Level 132 mmol/L (136-145) Potassium Level 3.3 mmol/L (3.5-5.1) Chloride Level 102 mmol/L (98-107) Carbon Dioxide Level 21 mmol/L (21-32) Anion Gap 9 (6-14) Blood Urea Nitrogen 20 mg/dL (7-20) Creatinine 1.1 mg/dL (0.6-1.0) Estimated GFR (Cockcroft-Gault) 53.0 BUN/Creatinine Ratio 18 (6-20) Glucose Level 229 mg/dL (70-99) Calcium Level 9.5 mg/dL (8.5-10.1) Total Bilirubin 0.7 mg/dL (0.2-1.0) Aspartate Amino Transf (AST/SGOT) 13 U/L (15-37) Alanine Aminotransferase (ALT/SGPT) 23 U/L (14-59) Alkaline Phosphatase 76 U/L (46-116) Troponin I Quantitative < 0.017 ng/mL (0.000-0.055) VM-Ywn-Y-Type Natriuretic Peptide 29 pg/mL (0-124) Total Protein 7.4 g/dL (6.4-8.2) Albumin 3.6 g/dL (3.4-5.0) Albumin/Globulin Ratio 0.9 (1.0-1.7) Lipase 128 U/L (73-393) Serum Test, Qualitative Negative (NEG) Glucose (Fingerstick) 142 mg/dL (70-99) Laboratory Tests Test 02/07/18 23:00 02/08/18 07:12 White Blood Count 15.4 x10^3/uL (4.0-11.0) Red Blood Count 4.40 x10^6/uL (3.50-5.40) Hemoglobin 13.9 g/dL (12.0-15.5) Hematocrit 40.2 % (36.0-47.0) Mean Corpuscular Volume 91 fL (79-100) Mean Corpuscular Hemoglobin 32 pg (25-35) Mean Corpuscular Hemoglobin Concent 35 g/dL (31-37) Red Cell Distribution Width 13.3 % (11.5-14.5) Platelet Count 388 x10^3/uL (140-400) Neutrophils (%) (Auto) 68 % (31-73) Lymphocytes (%) (Auto) 26 % (24-48) Monocytes (%) (Auto) 4 % (0-9) Eosinophils (%) (Auto) 1 % (0-3) Basophils (%) (Auto) 0 % (0-3) Neutrophils # (Auto) 10.5 x10^3uL (1.8-7.7) Lymphocytes # (Auto) 4.0 x10^3/uL (1.0-4.8) Monocytes # (Auto) 0.7 x10^3/uL (0.0-1.1) Eosinophils # (Auto) 0.2 x10^3/uL (0.0-0.7) Basophils # (Auto) 0.0 x10^3/uL (0.0-0.2) D-Dimer (Clare) < 0.27 ug/mlFEU Urine Collection Type Unknown Urine Color Yellow Urine Clarity Clear Urine pH 6.0 Urine Specific [place] 1.015 Urine Protein Negative mg/dL (NEG-TRACE) Urine Glucose (UA) Negative mg/dL (NEG) Urine Ketones (Stick) Negative mg/dL (NEG) Urine Blood Negative (NEG) Urine Nitrite Negative (NEG) Urine Bilirubin Negative (NEG) Urine Urobilinogen Dipstick 0.2 mg/dL (0.2 mg/dL) Urine Leukocyte Esterase Negative (NEG) Urine RBC 0 /HPF (0-2) Urine WBC 0 /HPF (0-4) Urine Squamous Epithelial Cells Few /LPF Urine Bacteria 0 /HPF (0-FEW) Urine Mucus Slight /LPF Sodium Level 132 mmol/L (136-145) Potassium Level 3.3 mmol/L (3.5-5.1) Chloride Level 102 mmol/L (98-107) Carbon Dioxide Level 21 mmol/L (21-32) Anion Gap 9 (6-14) Blood Urea Nitrogen 20 mg/dL (7-20) Creatinine 1.1 mg/dL (0.6-1.0) Estimated GFR (Cockcroft-Gault) 53.0 BUN/Creatinine Ratio 18 (6-20) Glucose Level 229 mg/dL (70-99) Calcium Level 9.5 mg/dL (8.5-10.1) Total Bilirubin 0.7 mg/dL (0.2-1.0) Aspartate Amino Transf (AST/SGOT) 13 U/L (15-37) Alanine Aminotransferase (ALT/SGPT) 23 U/L (14-59) Alkaline Phosphatase 76 U/L (46-116) Troponin I Quantitative < 0.017 ng/mL (0.000-0.055) PY-Ggf-E-Type Natriuretic Peptide 29 pg/mL (0-124) Total Protein 7.4 g/dL (6.4-8.2) Albumin 3.6 g/dL (3.4-5.0) Albumin/Globulin Ratio 0.9 (1.0-1.7) Lipase 128 U/L (73-393) Serum Test, Qualitative Negative (NEG) Glucose (Fingerstick) 142 mg/dL (70-99) VTE Prophylaxis Ordered VTE Prophylaxis Devices: Yes VTE Pharmacological Prophylaxi: Yes Assessment/Plan Assessment/Plan Chest pain/chest heaviness and an adult Occasional smoker, social drinker Family history of CAD Anxiety NOS Hypertension, dyslipidemia chronic stable Mild hyponatremia Mild hypokalemia AK I/VMN likely Reactive leukocytosis likely Plan: Has been nothing by mouth, MPI today Hold off on GI consult since we are doing cardiac workup Home meds have been reconciled Heavy education counseling done about the differentials of chest pain. Significant time ROSANGELA PERRY MD Feb 08, 2018 11:10
[2018-02-08 11:15] LABS: BARBITURATES NEG (NEG); BENZODIAZEPINES NEG (NEG); CANNABINOIDS NEG (NEG); COCAINE NEG (NEG); METHADONE NEG (NEG); OPIATES NEG (NEG); PHENCYCLIDINE NEG (NEG)
[2018-02-08] MEDS ORDERED: REGADENOSON 0.4 MG/5 ML DISP.SYRIN. IV ONE (11:15)
[2018-02-08 11:17] LABS: AMPHETAMINE/METHAMPHETAMINE NEG (NEG)
[2018-02-08] MEDS: CETIRIZINE HCL 10 MG TABLET. PO SCH (12:08)
[2018-02-08] MEDS: buPROPion SR 150 MG TABLET.SA PO SCH ×2 (12:08→20:58)
[2018-02-08] MEDS: ASPIRIN ENTERIC COATED 81 MG TABLET.DR. PO SCH (12:09)
[2018-02-08] MEDS: RANOLAZINE 500 MG TAB.ER.12H PO SCH ×2 (12:09→20:59)
--- NOTE | 2018-02-08 14:21 | RAD ---
MR#: [id number] Date of Study: 02/08/2018 Ordering Physician: HOWARD QUINONES, Referring Physician: JEN SINCLAIR Tech: ROBERT Elmore, ARRT (R) (N) APPROVED REPORT Test Type: Pharmacological Stress Nurse/Tech: Sanjeev Keller RN Test Indications: chest pain Cardiac History: asthma, clean cath 2015, smoker Medications: See Electronic Medical Record Medical History: See Electronic Medical Record Resting ECG: SR Resting Heart Rate: 54 bpm Resting Blood Pressure: 114/66mmHg Pretest Chest Pain: Atypical angina Nurse/Tech Notes lungs cta, S1S2, pt rates chest pain 7/10 that did not change throughout test Consent: The procedure was explained to the patient in lay terms. Informed consent was witnessed. Eric eout was entered into [employer]. History and Stress Test performed by Sanjeev Keller RN Pharm. Details Pharmacologic stress testing was performed using 0.4mg per 5ml of regadenoson given intravenously ove r 7-10 seconds. Stress Symptoms dyspnea POST EXERCISE Reason for Termination: Infusion complete Max HR: 116 bpm Max Blood Pressure: 145/76mmHg Blood Pressure response to exercise: Normal blood pressure response during stress. Heart Rate response to exercise: normal response Chest Pain: Yes. see baseline Arrhythmia: No. ST Change: No. INTERPRETATION Stress EKG Conclusion: Normal resting EKG shows a sinus rhythm with minimal nonspecific ST segment ch anges. The stress EKG shows no significant changes from baseline. No EKG evidence of stress-induced ischemia. Imaging Protocol IMAGE PROTOCOL: Stress Tc-99m/rest Tc-99m 2 days Rest: Stress: Viability: Radiopharm.Tc99m Sestamibi [id number] Img Date 02/08/2018 Inj-Img [id number]. Stress Admin Site: IV - Right AntecubitalAdministrator: Jose Manuel Garcia, RT (R)(N) STRESS DATA End Diast. Vol.72.0mlAv. Heart Rate67.0bpm LVEDV index BSA35.0mlCardiac Output1.6L/min End Syst. Vol.22.0mlCO Index BSA3.4L/min LVESV index BSA10.0mlMyocardial Kxym839.0g Eject. Beqvnetq60.0% Stress Scores Regional WT1.00Summed WT6.00 Regional WM0.00Summed WM2.00 LV Perfusion The stress scans show normal perfusion. Wall Motion F ventricular systolic function is normal with an ejection fraction of greater than 75%. LV Perf. Quant 17 Seg. SSS0.00 Stress Defect Extent (% LAD)0.00Rest Defect Extent (% LAD)Rev. Defect Extent (% LAD)0.00 Stress Defect Extent (% LCX) 0.00Rest Defect Extent (% LCX)Rev. Defect Extent (% LCX)0.00 Stress Defect Extent (% RCA)0.00Rest Defect Extent (% RCA)Rev. Defect Extent (% RCA)0.00 Stress Defect Extent (% MELA)0.00Rest Defect Extent (% MELA)Rev. Defect Extent (% MELA)0.00 Conclusion 1. No EKG evidence of stress-induced ischemia. 2. Nuclear imaging stress scans were normal. No evidence of ischemia or infarct. 3. Normal left ventricular systolic function with an ejection fraction of greater than 70%. 4. Low risk Lexiscan nuclear stress test. Signed by : Santhosh Puente MD Electronically Approved : 02/08/2018 14:20:22
--- NOTE | 2018-02-08 14:36 | RAD ---
Complete abdominal ultrasound 02/08/2018 11:56 AM Clinical History: Left upper quadrant pain Technique: Ultrasound examination of the abdomen was performed, and multiple static images were submitted for review. Comparison: Abdomen pelvis CT February 08, 2018 Findings: The pancreas is partially visualized. Visualized portions of the pancreas are grossly unremarkable. Visualized portions of the aorta and IVC are unremarkable. Prior cholecystectomy noted. Borderline hepatomegaly is noted with liver measuring 18.2 cm longitudinally. No focal hepatic lesions are seen. Hepatic echotexture is unremarkable. The common bile duct measures 7 mm in diameter which is nonspecific and commonly seen following removal of the gallbladder. No intrahepatic biliary dilatation is seen. The right kidney is normal in appearance measuring 11.3 cm in length. Spleen is normal in size measuring 11.5 cm in length. Left kidney is unremarkable in appearance measuring 12.3 cm in length. IMPRESSION: No sonographic evidence of acute intra-abdominal abnormality. Electronically signed by: Lakhwinder Cooley MD (02/08/2018 2:33 PM) [id number]
[2018-02-08 15:00] VITALS: BP 108/61
[2018-02-08 19:00] VITALS: BP 106/68
[2018-02-08] MEDS ORDERED: ATORVASTATIN CALCIUM 20 MG TABLET PO SCH (21:00)
[2018-02-08 23:00] VITALS: BP 102/62
[2018-02-09 07:00] VITALS: BP 103/70
[2018-02-09] MEDS: ASPIRIN ENTERIC COATED 81 MG TABLET.DR. PO SCH (09:00)
[2018-02-09] MEDS: CETIRIZINE HCL 10 MG TABLET. PO SCH (09:00)
[2018-02-09] MEDS: RANOLAZINE 500 MG TAB.ER.12H PO SCH (09:00)
[2018-02-09] MEDS: buPROPion SR 150 MG TABLET.SA PO SCH (09:00)
--- NOTE | 2018-02-09 10:47 | PDOC ---
PROGRESS NOTES Chief Complaint Chief Complaint Chest pain/chest heaviness - active MPI Epigastric pain-negative abdominal ultrasound Occasional smoker, social drinker Family history of CAD Anxiety NOS Hypertension, dyslipidemia chronic stable Mild hyponatremia, replaced Mild hypokalemia, replaced AK I/VMN likely Reactive leukocytosis likely History of Present Illness History of Present Illness MPI and abdominal ultrasound negative Plan for EGD later In my opinion if EGD later is negative can go home later Causes of chest pains have discussed with her during my visit Plan: EGD later if normal home Vitals Vitals Vital Signs Date Time Temp Pulse Resp B/P (MAP) Pulse Ox O2 Delivery O2 Flow Rate FiO2 02/09/18 07:00 97.7 62 18 103/70 (81) 96 Room Air 97.7 Physical Exam General: Alert, Oriented X3, Cooperative, No acute distress Heart: Regular rate (SR), Normal S1, Normal S2, Other (2/6 systolic murmur to LLS border) Lungs: Clear, Crackles Abdomen: Soft, No tenderness Extremities: No cyanosis, No edema Skin: No breakdown, No significant lesion Labs LABS Laboratory Tests Test 02/08/18 10:55 02/08/18 16:23 02/09/18 08:06 Urine Opiates Screen Neg (NEG) Urine Methadone Screen Neg (NEG) Urine Barbiturates Neg (NEG) Urine Phencyclidine Screen Neg (NEG) Urine Amphetamine/Methamphetamine Neg (NEG) Urine Benzodiazepines Screen Neg (NEG) Urine Cocaine Screen Neg (NEG) Urine Cannabinoids Screen Neg (NEG) Urine Ethyl Alcohol Neg (NEG) Glucose (Fingerstick) 175 mg/dL (70-99) 152 mg/dL (70-99) Review of Systems Review of Systems Chest pain, epigastric pain, the rest of ROS 14 point negative Assessment and Plan Assessmemt and Plan Problems Medical Problems: (1) Epigastric abdominal pain Status: Acute (2) Leukocytosis Status: Acute (3) SOB (shortness of breath) Status: Acute Comment Review of Relevant I have reviewed the following items yuni (where applicable) has been applied. Labs Laboratory Tests Test 02/07/18 23:00 02/08/18 07:12 02/08/18 10:55 02/08/18 16:23 White Blood Count 15.4 x10^3/uL (4.0-11.0) Red Blood Count 4.40 x10^6/uL (3.50-5.40) Hemoglobin 13.9 g/dL (12.0-15.5) Hematocrit 40.2 % (36.0-47.0) Mean Corpuscular Volume 91 fL (79-100) Mean Corpuscular Hemoglobin 32 pg (25-35) Mean Corpuscular Hemoglobin Concent 35 g/dL (31-37) Red Cell Distribution Width 13.3 % (11.5-14.5) Platelet Count 388 x10^3/uL (140-400) Neutrophils (%) (Auto) 68 % (31-73) Lymphocytes (%) (Auto) 26 % (24-48) Monocytes (%) (Auto) 4 % (0-9) Eosinophils (%) (Auto) 1 % (0-3) Basophils (%) (Auto) 0 % (0-3) Neutrophils # (Auto) 10.5 x10^3uL (1.8-7.7) Lymphocytes # (Auto) 4.0 x10^3/uL (1.0-4.8) Monocytes # (Auto) 0.7 x10^3/uL (0.0-1.1) Eosinophils # (Auto) 0.2 x10^3/uL (0.0-0.7) Basophils # (Auto) 0.0 x10^3/uL (0.0-0.2) D-Dimer (Clare) < 0.27 ug/mlFEU Urine Collection Type Unknown Urine Color Yellow Urine Clarity Clear Urine pH 6.0 Urine Specific [place]roy 1.015 Urine Protein Negative mg/dL (NEG-TRACE) Urine Glucose (UA) Negative mg/dL (NEG) Urine Ketones (Stick) Negative mg/dL (NEG) Urine Blood Negative (NEG) Urine Nitrite Negative (NEG) Urine Bilirubin Negative (NEG) Urine Urobilinogen Dipstick 0.2 mg/dL (0.2 mg/dL) Urine Leukocyte Esterase Negative (NEG) Urine RBC 0 /HPF (0-2) Urine WBC 0 /HPF (0-4) Urine Squamous Epithelial Cells Few /LPF Urine Bacteria 0 /HPF (0-FEW) Urine Mucus Slight /LPF Sodium Level 132 mmol/L (136-145) Potassium Level 3.3 mmol/L (3.5-5.1) Chloride Level 102 mmol/L (98-107) Carbon Dioxide Level 21 mmol/L (21-32) Anion Gap 9 (6-14) Blood Urea Nitrogen 20 mg/dL (7-20) Creatinine 1.1 mg/dL (0.6-1.0) Estimated GFR (Cockcroft-Gault) 53.0 BUN/Creatinine Ratio 18 (6-20) Glucose Level 229 mg/dL (70-99) Calcium Level 9.5 mg/dL (8.5-10.1) Total Bilirubin 0.7 mg/dL (0.2-1.0) Aspartate Amino Transf (AST/SGOT) 13 U/L (15-37) Alanine Aminotransferase (ALT/SGPT) 23 U/L (14-59) Alkaline Phosphatase 76 U/L (46-116) Troponin I Quantitative < 0.017 ng/mL (0.000-0.055) TT-Vhv-Y-Type Natriuretic Peptide 29 pg/mL (0-124) Total Protein 7.4 g/dL (6.4-8.2) Albumin 3.6 g/dL (3.4-5.0) Albumin/Globulin Ratio 0.9 (1.0-1.7) Lipase 128 U/L (73-393) Serum Test, Qualitative Negative (NEG) Glucose (Fingerstick) 142 mg/dL (70-99) 175 mg/dL (70-99) Urine Opiates Screen Neg (NEG) Urine Methadone Screen Neg (NEG) Urine Barbiturates Neg (NEG) Urine Phencyclidine Screen Neg (NEG) Urine Amphetamine/Methamphetamine Neg (NEG) Urine Benzodiazepines Screen Neg (NEG) Urine Cocaine Screen Neg (NEG) Urine Cannabinoids Screen Neg (NEG) Urine Ethyl Alcohol Neg (NEG) Test 02/09/18 08:06 Glucose (Fingerstick) 152 mg/dL (70-99) Laboratory Tests Test 02/08/18 10:55 02/08/18 16:23 02/09/18 08:06 Urine Opiates Screen Neg (NEG) Urine Methadone Screen Neg (NEG) Urine Barbiturates Neg (NEG) Urine Phencyclidine Screen Neg (NEG) Urine Amphetamine/Methamphetamine Neg (NEG) Urine Benzodiazepines Screen Neg (NEG) Urine Cocaine Screen Neg (NEG) Urine Cannabinoids Screen Neg (NEG) Urine Ethyl Alcohol Neg (NEG) Glucose (Fingerstick) 175 mg/dL (70-99) 152 mg/dL (70-99) Medications Current Medications Fentanyl Citrate (Fentanyl 2ml Vial) 50 mcg 1X ONCE IV Last administered on at 23:02; Start 02/07/18 at 22:45; Stop 02/07/18 at 22:46; Status DC Iohexol (Omnipaque 300 Mg/ml) 60 ml 1X ONCE IV Last administered on 02/08/18at 00:57; Start 02/08/18 at 00:45; Stop 02/08/18 at 00:46; Status DC Info (CONTRAST GIVEN -- Rx MONITORING) 1 each PRN DAILY PRN MC SEE COMMENTS; Start 02/08/18 at 00:45; Stop 02/10/18 at 00:44 Potassium Chloride (KCl Oral Soln) 40 meq 1X ONCE PO Last administered on 02/08at 02:29; Start 02/08/18 at 02:30; Stop 02/08/18 at 02:31; Status DC Aspirin (Children'S Aspirin) 324 mg 1X ONCE PO Last administered on 02/08/18at 04:51; Start 02/08/18 at 03:45; Stop 02/08/18 at 03:46; Status DC Info (FLU VACCINE SCREEN per RX) 1 each 1X ONCE MC ; Start 02/08/18 at 09:00; Stop 02/08/18 at 09:01; Status UNV Influenza Virus Vaccine (Afluria Trivalent [id number] Syringe) 0.5 ml ONCE ONCE VAX IM Last administered on 02/08/18at 18:22; Start 02/08/18 at 09:00; Stop at 09:01; Status DC Calcium Carbonate/ Glycine (Tums) 500 mg PRN AFTMEALHC PRN PO INDIGESTION; Start 02/08/18 at 09:00 Acetaminophen (Tylenol) 500 mg PRN Q6HRS PRN PO MILD PAIN / TEMP; Start at 09:00 Acetaminophen/ Codeine Phosphate (Tylenol #3) 1 tab PRN Q6HRS PRN PO MODERATE PAIN; Start 02/08/18 at 09:00 Ondansetron HCl (Zofran) 4 mg PRN Q6HRS PRN IV NAUSEA/VOMITING; Start 02/08/18 at 09:00 Ondansetron HCl (Zofran Odt) 4 mg PRN Q6HRS PRN PO NAUSEA/VOMITING; Start 02/08 at 09:00 Aspirin (Ecotrin) 81 mg DAILY PO Last administered on 02/08/18at 12:09; Start at 10:00 Atorvastatin Calcium (Lipitor) 20 mg QHS PO Last administered on 02/08/18at 20: 59; Start 02/08/18 at 21:00 Bupropion HCl (Wellbutrin Sr) 150 mg BID PO Last administered on 02/08/18at 20: 58; Start 02/08/18 at 10:00 Cetirizine HCl (ZyrTEC) 10 mg DAILY PO Last administered on 02/08/18at 12:08; Start 02/08/18 at 10:00 Ranolazine (Ranexa) 500 mg BID PO Last administered on 02/08/18at 20:59; Start 02/08/18 at 10:00 Non-Formulary Medication (Albuterol Sulfate (Proair Hfa Inhaler)) 2 puff PRN Q4HRS PRN INH SHORTNESS OF BREATH; Start 02/08/18 at 09:15; Status UNV Metformin HCl (Glucophage) 1,000 mg DAILYAC PO Last administered on 02/08/18at 12:09; Start 02/08/18 at 10:00; Stop 02/08/18 at 19:51; Status DC Pantoprazole Sodium (Protonix) 40 mg 1X ONCE PO Last administered on at 12:09; Start 02/08/18 at 09:15; Stop 02/08/18 at 09:22; Status DC Multi-Ingredient Mouthwash/Gargle (Gi Cocktail) 20 ml PRN Q15MIN PRN PO CHEST PAIN; Start 02/08/18 at 09:15 Albuterol Sulfate (Ventolin Neb Soln) 2.5 mg PRN Q6HRS PRN NEB SHORTNESS OF BREATH; Start 02/08/18 at 09:30 Regadenoson (Lexiscan) 0.4 mg 1X ONCE IV Last administered on 02/08/18at 11:46 ; Start 02/08/18 at 11:15; Stop 02/08/18 at 11:16; Status DC Metformin HCl (Glucophage) 1,000 mg DAILYAC PO ; Start 02/11/18 at 07:30 Active Scripts Active Reported Proair Hfa Inhaler (Albuterol Sulfate) 8.5 Gm Hfa.aer.ad 2 Puff INH PRN Q4HRS PRN Cetirizine Hcl 10 Mg Tablet 1 Tab PO DAILY Ranexa (Ranolazine) 500 Mg Tab.er.12h 1 Tab PO BID Atorvastatin Calcium 20 Mg Tablet 1 Tab PO DAILY Aspir-Low (Aspirin) 81 Mg Tablet.dr 1 Tab PO DAILY Metformin Hcl 500 Mg Tablet 1,000 Mg PO DAILYAC Wellbutrin Sr (Bupropion Hcl) 150 Mg Tablet.er 1 Tab PO BID Vitals/I & O Vital Sign - Last 24 Hours 02/08/18 02/08/18 02/08/18 02/08/18 12:09 13:07 15:00 19:00 Temp 97.4 98.2 97.4 98.2 Pulse 68 71 72 Resp 16 20 B/P (MAP) 123/67 108/61 (77) 106/68 (81) Pulse Ox 97 96 20 O2 Delivery Room Air Room Air 02/08/18 02/08/18 02/08/18 02/09/18 20:00 20:59 23:00 07:00 Temp 98.1 97.7 98.1 97.7 Pulse 71 83 62 Resp 16 18 B/P (MAP) 108/61 102/62 (75) 103/70 (81) Pulse Ox 96 O2 Delivery Room Air Room Air Intake and Output 02/08/18 02/08/18 02/09/18 15:00 23:00 07:00 Intake Total 500 ml Balance 500 ml ROSANGELA PERRY MD Feb 09, 2018 10:47
[2018-02-09 11:00] VITALS: BP 106/71
[2018-02-09] MEDS ORDERED: IV RINGERS,LACTATED 1000ML 1,000 ML IV SCH (12:41)
[2018-02-09] MEDS ORDERED: MIDAZOLAM HCL/PF 2 MG/2 ML VIAL. IV PRN (12:45)
[2018-02-09] MEDS ORDERED: fentaNYL PF VIAL 100 MCG/2 ML VIAL IV PRN ×2 (12:45)
[2018-02-09] MEDS ORDERED: LIDOCAINE 1% PF 2 ML VIAL. ID PRN (12:45)
[2018-02-09] MEDS ORDERED: LIDOCAINE 2% PF 2ML VIAL. ONE (14:20)
[2018-02-09] MEDS ORDERED: PROPOFOL 20 ML IV ONE (14:20)
--- NOTE | 2018-02-09 14:47 | PDOC4 ---
Operative Note Operative Note EGD with biopsies Meds propofol per anesthesia Pre-op dx abd pain s/p harry Post-op dx multiple gastric ulcers s/p bx Plan PPI therapy for 2 months' Avoid NSAIDS EGD in 2 months to confirm healing OLAMIDE JORGE MD Feb 09, 2018 14:47
[2018-02-09 15:00] VITALS: BP 123/73
[2018-02-09 15:10] VITALS: BP 142/74
== END 2018-02-09 17:07 | disposition home or self-care (01) ==
LOC: ER 21:38 → 5 SOUTH 02-08 03:13
PROVIDERS: ADMIT Internal Medicine; ATTEND Internal Medicine
DX: K25.9 Gastric ulcer, unspecified as acute or chronic, without hemorrhage or perforation (principal); K22.10 Ulcer of esophagus without bleeding; K21.9 Gastro-esophageal reflux disease without esophagitis; K81.1 Chronic cholecystitis; D72.828 Other elevated white blood cell count; E11.9 Type 2 diabetes mellitus without complications; E66.9 Obesity, unspecified; E78.5 Hyperlipidemia, unspecified; E87.1 Hypo-osmolality and hyponatremia; E87.6 Hypokalemia; F17.210 Nicotine dependence, cigarettes, uncomplicated; F41.9 Anxiety disorder, unspecified; I10 Essential (primary) hypertension; J44.9 Chronic obstructive pulmonary disease, unspecified; Z82.49 Family history of ischemic heart disease and other diseases of the circulatory system; Z83.3 Family history of diabetes mellitus
CPT/HCPCS: 36415; 43239; 71045; 74177; 76700; 78452; 80053; 80307; 81001; 82962; 83690; 83880; 84484; 84703; 85025; 85379; 88305; 88342; 90471; 90756; 93005; 93017; 94760; 96374; 99285; A9500; G0378; G0379; J2001; J2704; J2785; J3010; Q9967; 96375; 96376; J7120; G0479; Q2035

== ENCOUNTER → 2018-03-24 | Day surgery (SDC) | payer OTHER, BC ==
[~2018-03-24] MED LIST changes: +ASPI81TA50 PO; +ATOR20TA58 PO; +BUPR150T8 PO; +CETI10TA16 PO; +IV RINGERS,LACTATED 1000ML 1,000 ML IV SCH; +LIDOCAINE 1% PF 2 ML VIAL. ID PRN; +LIDOCAINE 1% PF 2 ML VIAL. ONE; +METF500T16 PO; +MIDAZOLAM HCL/PF 2 MG/2 ML VIAL. IV PRN; +PROAIR HFA8.5 GM INH; +PROPOFOL 20 ML IV ONE; +RANO500T2 PO; +fentaNYL PF VIAL 100 MCG/2 ML VIAL IV PRN
[2018-03-24 07:23] VITALS: BP 143/79
--- NOTE | 2018-03-24 20:47 | CONS ---
DATE OF CONSULTATION: 03/24/2018 REASON FOR CONSULTATION: Gastric ulcer followup. HISTORY OF PRESENT ILLNESS: A 47-year-old female, with past medical history significant for COPD, hyperlipidemia, and prediabetes, who is status post cholecystectomy, is seen for followup endoscopy to confirm gastric ulcer healing. The patient has been on medical therapy for the past 2 months and is here for confirmation. Denies any abdominal pain, dysphagia, nausea or vomiting at this time. PAST MEDICAL HISTORY: COPD, hyperlipidemia, status post cholecystectomy, history of D and C, tubal ligation, left knee surgery. ALLERGIES: None. MEDICATIONS: Include albuterol, aspirin, atorvastatin, Wellbutrin, cetirizine, metformin. SOCIAL HISTORY: Ex-smoker, nondrinker. FAMILY HISTORY: Noncontributory. REVIEW OF SYSTEMS: Per above. PHYSICAL EXAMINATION: GENERAL: Reveals a well-nourished, well-developed female. VITAL SIGNS: Temperature is 97.4, pulse 89, respiratory rate 18. LUNGS: Clear. CARDIOVASCULAR: S1, S2 without S3, S4 or appreciable murmur. ABDOMEN: Soft abdomen, normal bowel sounds without appreciable hepatosplenomegaly. EXTREMITIES: No cyanosis, clubbing or edema. IMPRESSION: Gastric ulcer. Surveillance endoscopy to confirm ulcer healing is recommended at this time with 2-4% risk of malignancy. Risks and benefits discussed. The patient is willing to proceed. OLAMIDE JORGE MD DR: BRANDON/lalitha JOB#: [id number] / [id number]
--- NOTE | 2018-03-27 12:08 | PATHOLOGY ---
[facility] Accession Number: [id number] . 01 Material submitted: . ANTRUM BIOPSY . 01 Clinical history: . Ulcer, H. pylori . 02 Diagnosis: Gastric biopsy, antrum: - Mild chronic reactive gastropathy with mild chronic inflammation. - Immunoperoxidase stain for Helicobacter pylori reveals rare positive bacteria - No acute ulcer is seen. (SHA:[facility] 03/27/2018) QTP/03/27/2018 . 02 Electronically signed: . Landon Hill MD, Pathologist NPI- [id number] . 01 Gross description: . Received in formalin labeled "Hightower, Vladimir, antrum," are 2 segments of doran soft tissue measuring 1.1 x 0.3 x 0.3 cm in aggregate dimensions and ranging from 0.4 to 0.7 cm in maximum dimension. The specimen is submitted entirely in cassette A1. (TSD; 03/24/2018) TOB/TOB . 02 Pathologist provided ICD-10: K29.50, K31.9 . 02 CPT . 762078, C03047 Specimen Comment: A courtesy copy of this report has been sent to Specimen Comment: [phone], . Specimen Comment: Report sent to / DR HOOD Specimen Comment: A duplicate report has been generated due to demographic updates. Performed at: 01 [facility] [address], [place] [id number] MD Clive Holt MD Phone: [phone] Performed at: 02 [facility] [address] [place], [place] [id number] MD Rafa Martinez MD Phone: [phone]
== END | disposition home or self-care (01) ==
LOC: ENDOS 05:57 → EDSTATUS 07:00
PROVIDERS: ATTEND Internal Medicine Gastroenterology
DX: K29.50 Unspecified chronic gastritis without bleeding (principal); K25.9 Gastric ulcer, unspecified as acute or chronic, without hemorrhage or perforation; F41.9 Anxiety disorder, unspecified; J44.9 Chronic obstructive pulmonary disease, unspecified; I10 Essential (primary) hypertension; K21.9 Gastro-esophageal reflux disease without esophagitis; E78.5 Hyperlipidemia, unspecified; F17.210 Nicotine dependence, cigarettes, uncomplicated; E11.9 Type 2 diabetes mellitus without complications; Z98.890 Other specified postprocedural states; Z79.899 Other long term (current) drug therapy; Z79.82 Long term (current) use of aspirin
CPT/HCPCS: 43239; 88305; J2704

== ENCOUNTER → 2019-03-02 | Day surgery (SDC) | payer BC ==
[~2019-03-02] MED LIST changes: +ALBU2.5V8 INH; +ISOS30TA4 PO; +IV RINGERS,LACTATED 1000ML 1,000 ML IV ONE; -IV RINGERS,LACTATED 1000ML 1,000 ML IV SCH; -LIDOCAINE 1% PF 2 ML VIAL. ID PRN; -LIDOCAINE 1% PF 2 ML VIAL. ONE; +LIRA0.6P2 SQ; +METO25TA4 PO; -MIDAZOLAM HCL/PF 2 MG/2 ML VIAL. IV PRN; -OXYC-323 PO; +OXYC1TAB15 PO; +PANT20TA2 PO; -PROAIR HFA8.5 GM INH; +VENL150C PO; -fentaNYL PF VIAL 100 MCG/2 ML VIAL IV PRN
[2019-03-02 07:55] VITALS: BP 143/91
--- NOTE | 2019-03-02 07:58 | HP ---
ADMIT DATE: 03/02/2019 UPDATED HISTORY AND PHYSICAL REASON FOR CONSULTATION: Intractable nausea and vomiting. REFERRING PHYSICIAN: Aliyah Garcia MD HISTORY OF PRESENT ILLNESS: This is a 48-year-old female with past medical history significant for hyperlipidemia, diet-controlled diabetes as well as anxiety, status post cholecystectomy, is seen with intractable nausea and vomiting. She has early satiety with bloating and belching after meals, which lasts for hours. Cardiac workup has been unrevealing. Prior cholecystectomy is noted. With ongoing issues, she requests additional evaluation of lack of response to pantoprazole. PAST MEDICAL HISTORY: COPD, prediabetes, hyperlipidemia, status post cholecystectomy. ALLERGIES: None. MEDICATIONS: Include albuterol, atorvastatin, isosorbide, Victoza, metoprolol, pantoprazole and Effexor. SOCIAL HISTORY: She is an ex-smoker, does not drink. FAMILY HISTORY: Noncontributory. REVIEW OF SYSTEMS: Per records. PHYSICAL EXAMINATION: GENERAL: Reveals a well-nourished, well-developed female who is alert, cooperative, in no acute distress. VITAL SIGNS: Temperature is 97.3, pulse 79, respiratory rate 18. HEENT: Reveals normocephalic, atraumatic head. Pupils and extraocular muscles are not tested. Sclerae anicteric. NECK: Supple. LUNGS: Clear. CARDIOVASCULAR: Reveals an S1, S2 without S3, S4 or appreciable murmur. ABDOMEN: Reveals laparoscopic cholecystectomy incision. Normoactive bowel sounds. Epigastric tenderness to deep palpation. EXTREMITIES: Reveals no cyanosis, clubbing or edema. IMPRESSION: Abdominal pain, status post laparoscopic cholecystectomy with nausea and vomiting. Differential includes peptic ulcer disease, gastroparesis, malignancy, celiac. Therefore, recommend upper endoscopy, status post cholecystectomy. If this is unrevealing, gastric emptying study would be pursued. OLAMIDE JORGE MD DR: BRANDON/lalitha JOB#: [id number] / [id number]
== END ==
LOC: SURG 06:10
PROVIDERS: ATTEND Internal Medicine Gastroenterology
DX: R11.2 Nausea with vomiting, unspecified (principal); T18.2XXA Foreign body in stomach, initial encounter; K29.50 Unspecified chronic gastritis without bleeding; K21.9 Gastro-esophageal reflux disease without esophagitis; K25.9 Gastric ulcer, unspecified as acute or chronic, without hemorrhage or perforation; E66.9 Obesity, unspecified; E11.9 Type 2 diabetes mellitus without complications; E03.9 Hypothyroidism, unspecified; F41.9 Anxiety disorder, unspecified; J44.9 Chronic obstructive pulmonary disease, unspecified; Z87.891 Personal history of nicotine dependence; Z90.49 Acquired absence of other specified parts of digestive tract; Z98.51 Tubal ligation status; Z72.89 Other problems related to lifestyle; Z79.84 Long term (current) use of oral hypoglycemic drugs; X58.XXXA Exposure to other specified factors, initial encounter; Y93.89 Activity, other specified; Y92.89 Other specified places as the place of occurrence of the external cause; Y99.8 Other external cause status
CPT/HCPCS: 43235; 81025; J2704

== ENCOUNTER 2019-10-28 09:47 | Emergency (ER) | payer BC ==
[~2019-10-28] VITALS: Ht 165.1 cm; Wt 97.0 kg
[~2019-10-28 09:47] MED LIST changes: -IV RINGERS,LACTATED 1000ML 1,000 ML IV ONE; -PROPOFOL 20 ML IV ONE
[2019-10-28 09:58] VITALS: BP 163/99
[2019-10-28 11:10] LABS: BASO # 0.1 x10^3/uL (0.0-0.2); BASO % 1 % (0-3); EOS % 0 % (0-3); HEMATOCRIT 37.5 % (36.0-47.0); LYMPH # 4.4 x10^3/uL (1.0-4.8); LYMPH % 45 % (24-48); MEAN CORPUSCULAR HEMOGLOBIN 32 pg (25-35); MEAN CORPUSCULAR HGB CONC 35 g/dL (31-37); MEAN CORPUSCULAR VOLUME 92 fL (79-100); MONO # 0.5 x10^3/uL (0.0-1.1); MONO % 6 % (0-9); NEUT # 4.7 x10^3/uL (1.8-7.7); NEUT % 48 % (31-73); PLATELET COUNT 273 x10^3/uL (140-400); RED BLOOD COUNT 4.09 x10^6/uL (3.50-5.40); WHITE BLOOD COUNT 9.6 x10^3/uL (4.0-11.0)
[2019-10-28] MEDS ORDERED: MORPHINE SULFATE 4 MG/ML VIAL. IV ONE (11:15)
[2019-10-28 11:17] LABS: BILIRUBIN,URINE NEGATIVE (NEG); CLARITY,URINE CLEAR; COLOR,URINE YELLOW; NITRITE,URINE NEGATIVE (NEG); PROTEIN,URINE NEGATIVE (NEG-TRACE); UROBILINOGEN,URINE 0.2 mg/dL (0.2 mg/dL)
[2019-10-28 11:19] LABS: PROTHROMBIN TIME PATIENT 11.7 SEC (11.7-14.0)
[2019-10-28 11:20] LABS: CALCIUM 8.4 mg/dL (8.5-10.1); CREATININE 0.9 mg/dL (0.6-1.0); GFR 66.3; POTASSIUM 4.4 mmol/L (3.5-5.1)
[2019-10-28 11:22] LABS: D-DIMER 0.29 ug/mlFEU (0.00-0.50)
[2019-10-28 11:26] LABS: ALBUMIN 3.5 g/dL (3.4-5.0); ALBUMIN/GLOBULIN RATIO 1.2 (1.0-1.7); MAGNESIUM 1.9 mg/dL (1.8-2.4); TOTAL BILIRUBIN 0.2 mg/dL (0.2-1.0); TOTAL PROTEIN 6.5 g/dL (6.4-8.2)
--- NOTE | 2019-10-28 11:26 | RAD ---
Examination: PORTABLE CHEST 1V History: Reason: SOA, COUGH, FEVER / Spl. Instructions: / History: Comparison/Correlation: 02/07/2018 Findings: Portable upright frontal view of chest was obtained. Heart size and pulmonary vasculature are normal. No infiltrate or pleural effusion. Bony structures are unremarkable. No pneumothorax. Impression: No active disease. Electronically signed by: Juan J Mcgill MD (10/28/2019 11:23 AM) [id number]
[2019-10-28 11:38] LABS: BACTERIA,URINE FEW /HPF (0-FEW); RBC,URINE OCC /HPF (0-2); SQUAMOUS EPITHELIAL CELL,UR FEW /LPF; WBC,URINE OCC /HPF (0-4)
[2019-10-28] MEDS ORDERED: IV NORMAL SALINE 1000ML BAG 1,000 ML IV ONE (13:30)
--- NOTE | 2019-10-28 13:57 | EKG ---
[facility] [address] [place] [address] Test Date: 2019-10-28 Test Time: 12:00:59 Pat Name: JULES VANCE Department: Room: Gender: F Maternal Fetal Physician: : [id number] Requested By: JAY CUNHA Order Number: [id number] Reading MD: Mukul Hansen MD Measurements Intervals [place]in Rate: 60 P: 34 ID: [id number] QRS: 31 QRSD: 72 T: 24 QT: 410 QTc: 410 Interpretive Statements SINUS RHYTHM Electronically Signed On 10-29-2019 12:35:08 CDT by Mukul Hansen MD
--- NOTE | 2019-10-28 14:28 | PHYS DOC ---
Past Medical History Past Medical History: Asthma, GERD, Hypertension, Other Additional Past Medical Histor: GASTROPARESIS Past Surgical History: Other Additional Past Surgical Histo: LEFT ROTATOR CUFF Smoking Status: Current Every Day Smoker Alcohol Use: Occasionally Drug Use: None General Adult EDM: Chief Complaint: FLU SYMPTOM HPI: HPI: Patient is a 49 year old female who presented to the ER for evaluation of flu- like symptoms. Patient said she has fever, chill, bodyache, cough for about a week after she was exposed to her daughter who was tested positive for COVID-19. Patient had the same symptoms in August, was tested twice for COVID-19 but all negative. Patient got better. She had her rotator cuff surgery two weeks ago. She has been doing fine until last week. Patient denied any chest pain or shortness of air. No abdominal pain,no nausea or vomiting. Patient said whenever she coughs her chest hurt. Review of Systems: Review of Systems: Constitutional: Positive for fever or chills. [] Eyes: Denies change in visual acuity. [] HENT: Denies nasal congestion or sore throat. [] Respiratory: Positive for cough,no shortness of breath. [] Cardiovascular: Denies chest pain or edema. [] GI: Denies abdominal pain, nausea, vomiting, bloody stools or diarrhea. [] : Denies dysuria. [] Musculoskeletal: Denies back pain or joint pain. [] Integument: Denies rash. [] Neurologic: Denies headache, focal weakness or sensory changes. [] Endocrine: Denies polyuria or polydipsia. [] Lymphatic: Denies swollen glands. [] Psychiatric: Denies depression or anxiety. [] Heart Score: HEART Score for Chest Pain: HEART Score for Chest Pain Response (Comments) Value History Slighlty/Non-Suspicious 0 ECG Normal 0 Age >45 - < 65 1 Risk Factors 1 or 2 Risk Factors 1 Total 2 Risk Factors: Risk Factors: DM, Current or recent (<one month) smoker, HTN, HLP, family history of CAD, obesity. Risk Scores: Score 0 - 3: 2.5% MACE over next 6 weeks - Discharge Home Score 4 - 6: 20.3% MACE over next 6 weeks - Admit for Clinical Observation Score 7 - 10: 72.7% MACE over next 6 weeks - Early Invasive Strategies Current Medications: Current Medications Medications (Trade) Dose Ordered Sig/Shane Start Time Stop Time Status Last Admin Dose Admin Morphine Sulfate (Morphine Sulfate) 4 mg 1X ONCE 10/28/19 11:15 10/28/19 11:16 DC 10/28/19 11:50 4 MG Sodium Chloride 1,000 ml @ 1,000 mls/hr 1X ONCE 10/28/19 13:30 10/28/19 14:29 10/28/19 13:29 1,000 MLS/HR Allergies: Allergies: Allergies Coded Allergies Type Severity Reaction Last Updated Verified No Known Drug Allergies 02/09/18 No Physical Exam: PE: Constitutional: Well developed, well nourished, no acute distress, non-toxic appearance. [] HENT: Normocephalic, atraumatic, bilateral external ears normal, oropharynx tam st, no oral exudates, nose normal. [] Eyes: PERRLA, EOMI, conjunctiva normal, no discharge. [] Neck: Normal range of motion, no tenderness, supple, no stridor. [] Cardiovascular:Heart rate regular rhythm, no murmur [] Lungs & Thorax: Bilateral breath sounds clear to auscultation [] Abdomen: Bowel sounds normal, soft, no tenderness, no masses, no pulsatile masses. [] Skin: Warm, dry, no erythema, no rash. [] Back: No tenderness, no CVA tenderness. [] Extremities: No tenderness, no cyanosis, no clubbing, ROM intact, no edema. [] Neurologic: Alert and oriented X 3, normal motor function, normal sensory function, no focal deficits noted. [] Psychologic: Affect normal, judgement normal, mood normal. [] Current Patient Data: Labs: Laboratory Tests Test 10/28/19 10:45 10/28/19 11:00 White Blood Count 9.6 x10^3/uL (4.0-11.0) Red Blood Count 4.09 x10^6/uL (3.50-5.40) Hemoglobin 13.0 g/dL (12.0-15.5) Hematocrit 37.5 % (36.0-47.0) Mean Corpuscular Volume 92 fL (79-100) Mean Corpuscular Hemoglobin 32 pg (25-35) Mean Corpuscular Hemoglobin Concent 35 g/dL (31-37) Red Cell Distribution Width 14.0 % (11.5-14.5) Platelet Count 273 x10^3/uL (140-400) Neutrophils (%) (Auto) 48 % (31-73) Lymphocytes (%) (Auto) 45 % (24-48) Monocytes (%) (Auto) 6 % (0-9) Eosinophils (%) (Auto) 0 % (0-3) Basophils (%) (Auto) 1 % (0-3) Neutrophils # (Auto) 4.7 x10^3/uL (1.8-7.7) Lymphocytes # (Auto) 4.4 x10^3/uL (1.0-4.8) Monocytes # (Auto) 0.5 x10^3/uL (0.0-1.1) Eosinophils # (Auto) 0.0 x10^3/uL (0.0-0.7) Basophils # (Auto) 0.1 x10^3/uL (0.0-0.2) Prothrombin Time 11.7 SEC (11.7-14.0) Prothrombin Time INR 0.9 (0.8-1.1) Activated Partial Thromboplast Time 25 SEC (24-38) Fibrinogen 410 mg/dL (200-440) D-Dimer (Clare) 0.29 ug/mlFEU (0.00-0.50) Sodium Level 140 mmol/L (136-145) Potassium Level 4.4 mmol/L (3.5-5.1) Chloride Level 105 mmol/L (98-107) Carbon Dioxide Level 24 mmol/L (21-32) Anion Gap 11 (6-14) Blood Urea Nitrogen 27 mg/dL (7-20) H Creatinine 0.9 mg/dL (0.6-1.0) Estimated GFR (Cockcroft-Gault) 66.3 BUN/Creatinine Ratio 30 (6-20) H Glucose Level 131 mg/dL (70-99) H Lactic Acid Level 2.1 mmol/L (0.4-2.0) H Calcium Level 8.4 mg/dL (8.5-10.1) L Magnesium Level 1.9 mg/dL (1.8-2.4) Total Bilirubin 0.2 mg/dL (0.2-1.0) Aspartate Amino Transferase (AST) 19 U/L (15-37) Alanine Aminotransferase (ALT) 26 U/L (14-59) Alkaline Phosphatase 66 U/L (46-116) Troponin I Quantitative < 0.017 ng/mL (0.000-0.055) Total Protein 6.5 g/dL (6.4-8.2) Albumin 3.5 g/dL (3.4-5.0) Albumin/Globulin Ratio 1.2 (1.0-1.7) Urine Collection Type Void Urine Color Yellow Urine Clarity Clear Urine pH 6.0 (<5.0-8.0) Urine Specific [place] 1.010 (1.000-1.030) Urine Protein Negative mg/dL (NEG-TRACE) Urine Glucose (UA) Negative mg/dL (NEG) Urine Ketones (Stick) Negative mg/dL (NEG) Urine Blood Negative (NEG) Urine Nitrite Negative (NEG) Urine Bilirubin Negative (NEG) Urine Urobilinogen Dipstick 0.2 mg/dL (0.2 mg/dL) Urine Leukocyte Esterase Negative (NEG) Urine RBC Occ /HPF (0-2) Urine WBC Occ /HPF (0-4) Urine Squamous Epithelial Cells Few /LPF Urine Bacteria Few /HPF (0-FEW) Urine Mucus Slight /LPF Laboratory Tests 10/28/19 10:45 Laboratory Tests 10/28/19 10:45 Vital Signs: Vital Signs Date Time Temp Pulse Resp B/P (MAP) Pulse Ox O2 Delivery O2 Flow Rate FiO2 10/28/19 09:58 98.3 80 20 163/99 (120) 98 Room Air 98.3 EKG: EKG: [][address] [address] EKG REPORT Signed PATIENT: JULES VANCE ACCOUNT: [id number] : 1970 LOCATION: ER AGE: 49 SEX: F EXAM PROCEDURE: 12 Lead EKG STATUS: DEP ER ORD. PHYSICIAN: JAY CUNHA DO REASON: [address] [id number] Test Date: 2019-10-28 Test Time: 12:00:59 Pat Name: JULES VANCE Department: Room: Gender: F Mission Support Specialist: : 1970 Requested By: JAY CUNHA Order Number: [id number] Reading MD: Elham Hansen MD Measurements Intervals [place] Rate: 60 P: 34 DE: 124 QRS: 31 QRSD: 72 T: 24 QT: 410 QTc: 410 Interpretive Statements SINUS RHYTHM Electronically Signed On 10-29-2019 12:35:08 CDT by Elham Hansen MD DICTATED and SIGNED BY: ELHAM HANSEN MD DATE: 10/28/19 1200 Radiology/Procedures: Radiology/Procedures: [][facility] [address] [place] [address] IMAGING REPORT Signed PATIENT: JULES VANCE ACCOUNT: [id number] : 1970 LOCATION: ER AGE: 49 SEX: F EXAM STATUS: PRE ER ORD. PHYSICIAN: JAY CUNHA DO REASON: SOA, COUGH, FEVER PROCEDURE: PORTABLE CHEST 1V Examination: PORTABLE CHEST 1V History: Reason: SOA, COUGH, FEVER / Spl. Instructions: / History: Comparison/Correlation: 02/07/2018 Findings: Portable upright frontal view of chest was obtained. Heart size and pulmonary vasculature are normal. No infiltrate or pleural effusion. Bony structures are unremarkable. No pneumothorax. Impression: No active disease. Electronically signed by: Juan J Reaves MD (10/28/2019 11:23 AM) [id number] DICTATED and SIGNED BY: JUAN J REAVES MD DATE: 10/28/19 1123 Course & Med Decision Making: Course & Med Decision Making Pertinent Labs and Imaging studies reviewed. (See chart for details) COVID-19 CRITERIA: The patient was evaluated during the global COVID-19 pandemic, and that diagnosis was suspected/considered upon their initial presentation. Their evaluation, treatment and testing was consistent with current guidelines for patients who present with complaints or symptoms that may be related to COVID-19. Dragon Disclaimer: Dragon Disclaimer: This electronic medical record was generated, in whole or in part, using a voice recognition dictation system. Departure Departure Impression: Primary Impression: Cough Additional Impression: Suspected COVID-19 virus infection Disposition: HOME, SELF-CARE Condition: IMPROVED Referrals: UNKNOWN PCP NAME (PCP) PLEASE FOLLOW UP WITH YOUR DOCTOR NEEDED Patient Instructions: Cough, Adult Additional Instructions: Thank you for visiting [facility]. We appreciate you trusting us with your care. If any additional problems come up please don't hesitate to return to visit us. Follow up with your primary care provider so they can plan additional care if needed and know about the problem that you had today. If symptoms worsen come back to the Emergency Department. Any concerning symptoms that start such as chest pain, shortness of air, weakness or numbness on one side of the body, running high fevers or any other concerning symptoms return to the ER. You have a viral syndrome which may include symptoms like muscle aches, fevers, chills, runny nose, cough, sneezing, sore throat, nausea, vomiting, or diarrhea. One of the potential viruses that you may have is SARS-CoV-2, the virus that causes COVID-19, also known as the Coronavirus. You are just as likely to have a different viral infection such as the common cold, flu, etc. Most patients with the Coronavirus have mild symptoms and recover on their own. Resting, staying hydrated, and sleep based on known cases can be helpful. As of todays visit, you are well enough to go home and treat your symptoms with oral fluids and over the counter medications. Coronavirus testing is not performed on most people with mild symptoms who are being discharged from the emergency department. If Coronavirus testing was performed today the results will not be available for possibly up to 3-4 days. If your result is positive you will be contacted. Please follow the following precautions at home: 1. Stay home except to get medical care. 2. As advised by the CDC, we recommend that you stay in your home and minimize contact with other people. We do not want you to spread the infection. 3. Those who are older or have significant medical issues may have more severe symptoms from this infection. We recommend self-isolation FOR AT LEAST 7 DAYS after your 1st day of symptoms. AFTER you feel better please wait AT LEAST ANOTHER WEEK before returning to regular activities and being around other people. 4. IF you become sicker and have difficulty breathing, chest pain, are unable to eat/drink, severe vomiting, diarrhea, or weakness you may need to return to the Emergency Department. 5. You should restrict activities outside of your home, except for getting medical care. DO NOT go to work, school, or public areas. Avoid using public transportation, ride sharing, or taxis. 6. Separate yourself from other people in your home. You should use a separate bathroom if possible. 7. Avoid sharing personal household items such as dishes, cups, eating utensils, towels, etc. 8. Clean all high touch surfaces every day (door knobs, counter tops, etc). Use a household cleaning spray or wipe per label instructions. 9. Clean your hands often. Wash your hands with soap and water for at least 20 seconds. 10. Cover your mouth and nose when you cough or sneeze. 11. Throw used tissues in the trash and immediately wash your hands. For additional resources please visit the CDC website or the [facility] ([phone]). THE FOLLOWING ADVICE WAS GIVEN: As you have symptoms, you should stay at home for at least 7 days. Notify a healthcare professional if you develop further symptoms that include chest pain, arrhythmias/palpitations, prolonged SOB or fever, or other concerning symptoms. If you live with other people, they should stay at home for at least 14 days, to avoid spreading the infection outside the home. After 14 days, anyone you live with who does not have symptoms can return to their normal routine. But, if anyone in your home gets symptoms, they should stay at home for 7 days from the day their symptoms start. Even if it means they're at home for longer than 14 days. OTHER INFORMATION: If you live with someone who is 70 or over, has a long-term illness, is or has a weakened immune system, try to find somewhere else for them to stay for 14 days. If you have to stay at home together, try to keep away from each other as much as possible. Justicifation of Admission Dx: Justifications for Admission: Justification of Admission Dx: N/A COVID-19 Assessment: COVID-19 Patient Risks: Age 65 or older: No Sign of co-morbidity: No Exp to person + for COVID: Yes Exp to PUI: Yes Travel from affected area: No Lower respiratory symptoms: No Fever: Yes Other: No PPE Use: Full PPE with N95 mask or PAPR: Yes CUNHA,PETER T DO Oct 28, 2019 14:28
== END 2019-10-28 14:57 | disposition home or self-care (01) ==
LOC: ER 09:47
DX: R05 Cough (principal); Z20.828 Contact with and (suspected) exposure to other viral communicable diseases; R50.9 Fever, unspecified; J45.909 Unspecified asthma, uncomplicated; K21.9 Gastro-esophageal reflux disease without esophagitis; I10 Essential (primary) hypertension; F17.200 Nicotine dependence, unspecified, uncomplicated; Z98.890 Other specified postprocedural states
CPT/HCPCS: 36415; 71045; 80053; 81001; 83605; 83735; 84484; 85025; 85379; 85384; 85610; 85730; 87040; 93005; 96374; 99285; J2270; J7030; U0003

== ENCOUNTER 2019-11-20 21:07 | Inpatient (IN) | payer BC ==
[~2019-11-20] VITALS: Ht 165.1 cm; Wt 101.0 kg
[2019-11-20 20:20] VITALS: BP 114/72
[2019-11-20 22:23] VITALS: BP 95/52
[2019-11-20] MEDS ORDERED: ACETAMINOPHEN 325 MG TABLET. PO PRN (22:45)
[2019-11-20] MEDS: HYDROcodone/APAP 5/325MG 1 TAB TABLET PO PRN (22:45)
[2019-11-20] MEDS ORDERED: ONDANSETRON PF 4 MG/2 ML VIAL. IVP PRN (22:45)
[2019-11-20] MEDS ORDERED: BUPR100T11 PO (23:22)
[2019-11-20] MEDS ORDERED: DOCU-109 PO (23:22)
[2019-11-20] MEDS ORDERED: LYSI500T8 PO (23:22)
[2019-11-20] MEDS ORDERED: EMPA10TA PO (23:22)
[2019-11-20] MEDS ORDERED: POTA90TA2 PO (23:22)
[2019-11-20] MEDS ORDERED: PANT40TA77 PO (23:22)
[2019-11-20] MEDS ORDERED: VENL75TA PO (23:22)
[2019-11-20] MEDS ORDERED: ERYT250C33 PO (23:22)
[2019-11-20] MEDS: NICOTINE 14MG PATCH. TD SCH (23:47)
[2019-11-21] MEDS: IV NORMAL SALINE 1000ML BAG 1,000 ML IV SCH ×3 (01:00→21:10)
[2019-11-21 02:00] VITALS: BP 101/60
[2019-11-21 05:45] LABS: BASO # 0.1 x10^3/uL (0.0-0.2); BASO % 1 % (0-3); EOS % 0 % (0-3); HEMATOCRIT 35.6 % (36.0-47.0); HEMOGLOBIN 12.4 g/dL (12.0-15.5); LYMPH # 3.5 x10^3/uL (1.0-4.8); LYMPH % 45 % (24-48); MEAN CORPUSCULAR HEMOGLOBIN 33 pg (25-35); MEAN CORPUSCULAR HGB CONC 35 g/dL (31-37); MEAN CORPUSCULAR VOLUME 93 fL (79-100); MONO # 0.5 x10^3/uL (0.0-1.1); MONO % 7 % (0-9); NEUT # 3.6 x10^3/uL (1.8-7.7); NEUT % 47 % (31-73); PLATELET COUNT 279 x10^3/uL (140-400); RED BLOOD COUNT 3.81 x10^6/uL (3.50-5.40); RED CELL DISTRIBUTION WIDTH 13.6 % (11.5-14.5); WHITE BLOOD COUNT 7.7 x10^3/uL (4.0-11.0)
[2019-11-21 06:04] LABS: ALBUMIN 3.2 g/dL (3.4-5.0); C-REACTIVE PROTEIN 1.3 mg/L (0-3.3); CALCIUM 8.4 mg/dL (8.5-10.1); GFR 58.7; TOTAL BILIRUBIN 0.1 mg/dL (0.2-1.0); TOTAL PROTEIN 6.4 g/dL (6.4-8.2)
[2019-11-21 07:00] VITALS: BP 115/79
[2019-11-21] MEDS: PANTOPRAZOLE 40 MG TABLET.DR. PO SCH ×2 (07:17→17:12)
[2019-11-21] MEDS: NICOTINE 14MG PATCH. TD SCH (07:21)
[2019-11-21] MEDS: HYDROcodone/APAP 5/325MG 1 TAB TABLET PO PRN ×3 (07:22→22:19)
[2019-11-21] MEDS: NON FORMULARY ITEM (Empagliflozin (Jardiance) 10 MG) PO SCH (09:00)
[2019-11-21] MEDS ORDERED: ERYTHROMYCIN BASE 250 MG TABLET PO SCH (09:00)
[2019-11-21] MEDS ORDERED: NON FORMULARY ITEM (Potassium Gluconate 90 MG) PO SCH (09:00)
[2019-11-21] MEDS ORDERED: NON FORMULARY ITEM (Lysine (L-Lysine) 1 TAB) PO SCH (09:00)
[2019-11-21] MEDS: VENLAFAXINE 75 MG TABLET. PO SCH ×3 (10:08→21:09)
[2019-11-21] MEDS: buPROPion SR 150 MG TABLET.SA PO SCH ×2 (10:08→21:09)
[2019-11-21] MEDS: DOCUSATE SODIUM 100 MG CAPSULE. PO SCH (10:08)
[2019-11-21] MEDS: METOPROLOL TART IMMED RELEASE 25 MG TABLET. PO SCH ×3 (10:09→21:09)
[2019-11-21] MEDS: ISOSORBIDE MONONITRATE ER 30 MG TAB.ER.24H PO SCH (10:09)
--- NOTE | 2019-11-21 10:19 | PDOC2 ---
MARA SHEPARD 11/21/19 1019: GI CONSULT Reason For Consult: diabetic gastroparesis, h/o H. pylori HPI: HPI: 49 y/o female transferred from [facility]. Tells me ill x 4 weeks w/ cough and voice weakness. Has ENT appt scheduled. Early Tue morning awoke w/ substernal/epigastric pain/burning radiating to neck/jaw. Constant since then, no change with eating. Last stooled Tuesday, usually takes stool softeners. COVID exposure (daughter), multiple tests negative and another pending. [facility] workup per d/w Dr. Hendrix included negative cardiac enzymes, normal EKG, and normal echocardiogram. Significant anxiety. Labs unremarkable. Denies reflux/heartburn, dysphagia, n/v, diarrhea, constipation, hematochezia, melena, change in appetite, and weight loss. H/o ACP w/ previous cardiac workup. EGD 01/2018 w/ gastric ulcers. Cannot view procedure report from 03/2018 - she indicates ulcers were healed but scope showed retained food in stomach. Bi opsies +H. pylori then, was treated. No previous colonoscopy. S/p cholecystectomy (decreased EF, path w/ chronic cholecystitis, normal IOC). US and CT here unrevealing in 2018. Has been on e-mycin and PPI BID. Ibuprofen PRN. PMH: PMH: anxiety, COPD, pre-DM, HLD cholecystectomy, left knee surgery, wisdom teeth removal, endometrial ablation, D&C x 4, tubal ligation, cardiac cath FH: Family History: No pertinent hx Social History: Smoke: <1 pack per day ALCOHOL: none Drugs: None ROS: Per HPI Vitals: Vitals: Vital Signs Date Time Temp Pulse Resp B/P (MAP) Pulse Ox O2 Delivery O2 Flow Rate FiO2 11/21/19 10:09 69 115/79 11/21/19 08:22 18 96 Room Air 11/21/19 07:00 96.9 96.9 Labs: Labs: Laboratory Tests Test 11/21/19 05:25 White Blood Count 7.7 x10^3/uL (4.0-11.0) Red Blood Count 3.81 x10^6/uL (3.50-5.40) Hemoglobin 12.4 g/dL (12.0-15.5) Hematocrit 35.6 % (36.0-47.0) Mean Corpuscular Volume 93 fL (79-100) Mean Corpuscular Hemoglobin 33 pg (25-35) Mean Corpuscular Hemoglobin Concent 35 g/dL (31-37) Red Cell Distribution Width 13.6 % (11.5-14.5) Platelet Count 279 x10^3/uL (140-400) Neutrophils (%) (Auto) 47 % (31-73) Lymphocytes (%) (Auto) 45 % (24-48) Monocytes (%) (Auto) 7 % (0-9) Eosinophils (%) (Auto) 0 % (0-3) Basophils (%) (Auto) 1 % (0-3) Neutrophils # (Auto) 3.6 x10^3/uL (1.8-7.7) Lymphocytes # (Auto) 3.5 x10^3/uL (1.0-4.8) Monocytes # (Auto) 0.5 x10^3/uL (0.0-1.1) Eosinophils # (Auto) 0.0 x10^3/uL (0.0-0.7) Basophils # (Auto) 0.1 x10^3/uL (0.0-0.2) D-Dimer (Clare) < 0.27 ug/mlFEU Sodium Level 140 mmol/L (136-145) Potassium Level 4.0 mmol/L (3.5-5.1) Chloride Level 106 mmol/L (98-107) Carbon Dioxide Level 24 mmol/L (21-32) Anion Gap 10 (6-14) Blood Urea Nitrogen 21 mg/dL (7-20) Creatinine 1.0 mg/dL (0.6-1.0) Estimated GFR (Cockcroft-Gault) 58.7 BUN/Creatinine Ratio 21 (6-20) Glucose Level 188 mg/dL (70-99) Calcium Level 8.4 mg/dL (8.5-10.1) Total Bilirubin 0.1 mg/dL (0.2-1.0) Aspartate Amino Transf (AST/SGOT) 11 U/L (15-37) Alanine Aminotransferase (ALT/SGPT) 17 U/L (14-59) Alkaline Phosphatase 62 U/L (46-116) C-Reactive Protein, Quantitative 1.3 mg/L (0-3.3) Total Protein 6.4 g/dL (6.4-8.2) Albumin 3.2 g/dL (3.4-5.0) Albumin/Globulin Ratio 1.0 (1.0-1.7) Allergies: Coded Allergies: No Known Drug Allergies (Unverified , 02/09/18) Medications: Current Medications Medications (Trade) Dose Ordered Sig/Shane Route PRN Reason Start Time Stop Time Status Last Admin Dose Admin Acetaminophen/ Hydrocodone Bitart (Lortab 5/325) 1 tab PRN Q4HRS PRN PO MODERATE PAIN 4-6 11/20/19 22:45 11/21/19 07:22 Acetaminophen (Tylenol) 650 mg PRN Q4HRS PRN PO MILD PAIN 1-3 11/20/19 22:45 11/20/19 23:51 Isosorbide Mononitrate (Imdur) 30 mg DAILY PO 11/21/19 09:00 11/21/19 10:09 Metoprolol Tartrate (Lopressor) 25 mg BID PO 11/21/19 09:00 11/21/19 10:09 Bupropion HCl (Wellbutrin Sr) 150 mg BID PO 11/21/19 09:00 11/21/19 10:08 Docusate Sodium (Colace) 300 mg DAILY PO 11/21/19 09:00 11/21/19 10:08 Erythromycin (E-Mycin) 250 mg BID PO 11/21/19 09:00 11/21/19 07:18 Pantoprazole Sodium (Protonix) 40 mg BIDAC PO 11/21/19 07:30 11/21/19 07:17 Venlafaxine HCl (Effexor) 75 mg TID PO 11/21/19 09:00 11/21/19 10:08 Nicotine (Nicoderm Cq 14mg) 1 patch DAILY TD 11/20/19 23:30 11/21/19 07:21 Imaging: Imaging: - PE: GEN: NAD HEENT: Atraumatic, PERRL - voice is hoarse sometimes LUNGS: diminished anteriorly HEART: RRR ABD: NABS, S/ND, mild epigastric disocmfort EXTREMITY: No edema SKIN: No rashes, no jaundice NEURO/PSYCH: A & O 3, anxious A/P: A/P: ACP, cough, anxiety, hoarseness H/o Adelfo (healed on recheck), H. pylori (treated), and suspected gastroparesis - on PPI and e-mycin CRC screen H/o constipation - controlled w/ stool softeners usually S/p cholecystectomy -- Returned to see w/ Dr. Jorge who recommends abd US, Amitiza, and H. pylori treatment. Continue PPI and e-mycin. Outpt screening colonoscopy. Anxiety psych consult and COVID-19 testing. OLAMIDE JORGE MD 11/21/19 1124: MARA SHEPARD Nov 21, 2019 10:19 OLAMIDE JORGE MD Nov 21, 2019 11:24
--- NOTE | 2019-11-21 10:22 | HP ---
ADMIT DATE: 11/21/2019 HISTORY OF PRESENT ILLNESS: The patient is a 49-year-old female patient who presented to the Emergency Room of [facility] complaining that she is having chest pain, cough that has been going on for a month. Chest pain is constant since the night before admission. She gets so anxious that she has been exposed to her daughter who was diagnosed with COVID; however, she has been tested numerous times, one on 10/30/2019 and another on 11/08/2019 and both were negative. She was evaluated on 10/27 at [facility] Emergency Room and again on 10/29 at [facility] Emergency Room and again no abnormality was detected. She was admitted to [facility] to do 2 more sets of cardiac enzyme and to consult the maintenance service supervisor. She was swabbed and COVID test was sent, the result of which is still pending at the time of this dictation. Her EKG showed that she was in sinus rhythm with a heart rate of 69 beats per minute, no finding of acute ST segment elevation myocardial infarction. She has 3 sets of cardiac enzymes that ruled out myocardial infarction, all troponin was less than 0.017. Has had an echocardiogram done, which basically showed that her left ventricular systolic function is normal, ejection fraction is within normal range. Ejection fraction was 60-65%. She has normal left ventricular segmental wall motion. She has an other finding that included D-dimer and C-reactive protein are well within normal range. She basically was extremely anxious, almost delusional, agitated, claiming that all her symptoms were related to her Helicobacter pylori infection and/or diabetic gastroparesis, although she has not had complained of any abdominal bloating, abdominal pain, nausea or vomiting and therefore, a decision was made to transfer her to [facility] to consult the gastroenterology team and probably a psychiatrist. PAST MEDICAL HISTORY: Significant for anxiety, hypertension, hyperlipidemia, bronchial asthma, gastroesophageal reflux disease, diabetic gastroparesis. She apparently has also history of Helicobacter pylori gastritis, treated with triple antibiotics. She also has anxiety and type 2 diabetes mellitus. PAST SURGICAL HISTORY: Significant for cholecystectomy and tubal ligation. SOCIAL HISTORY: She lives with her daughter. She smokes a pack a day. She does not drink alcohol or use recreational drugs. ALLERGIES: She has no known drug allergies. MEDICATIONS: She is currently on following medications: She is on erythromycin 250 mg twice a day for diabetic gastroparesis, metoprolol tartrate 25 mg p.o. b.i.d., Wellbutrin-SR 150 mg twice a day, venlafaxine 225 mg daily, potassium gluconate 99 mg p.o. daily, lysine 500 mg daily, Colace 100 mg daily, Protonix 40 mg once a day, and Jardiance 10 mg p.o. daily. REVIEW OF SYSTEMS: As per history of present illness. PHYSICAL EXAMINATION: GENERAL: When I saw her today, she was definitely much calmer. There was no pallor, jaundice or cyanosis. No lymphadenopathy, no thyromegaly, no jugular venous distention, no limb edema. VITAL SIGNS: Her heart rate was 69, blood pressure was 115/79, temperature was 96.9, respiratory rate 20, and oxygen saturation was 99%. HEAD, EYES, EARS, NOSE AND THROAT: Normocephalic, atraumatic. NECK: Supple. HEART: Showed normal first and second heart sounds. No gallop or murmur. CHEST: Clear to auscultation. No crepitation or rhonchi. ABDOMEN: Distended, soft, nontender. NEUROLOGIC: She was awake, alert, responding appropriately. All cranial nerves intact. EXTREMITIES: She moves all extremities without difficulty. LABORATORY WORK: This morning showed a white cell count of 7700, hemoglobin 12, hematocrit 36, MCV 93, and platelet count 279,000. Her chemistry showed a serum sodium of 140, potassium 4, chloride 106, bicarbonate 24, anion gap of 10, BUN of 21, creatinine 1, estimated GFR was 59 mL per minute. Her glucose was 188, calcium was 8.4. Total bilirubin, AST, ALT, alkaline phosphatase were normal. Total protein was 6.4, albumin was 3.2. Her C-reactive protein again was 1.3, which is well within normal range. Her D-dimer again was only 0.27. ASSESSMENT AND PLAN: In summary, this is a 49-year-old female patient who was admitted to [facility] with a complaint of chest pain. She has ruled out myocardial infarction. Echocardiogram showed normal left ventricular systolic function, ejection fraction. Her CBC and comprehensive metabolic profiles, C-reactive protein, D-dimer are all within normal range. She was extremely agitated and was delusional yesterday that nobody is listening to her and that her symptoms are related to her diabetic gastroparesis and/or Helicobacter pylori gastritis, although she did not complain of any symptoms related to that. She has also been extremely anxious about the possibility that she has COVID-19 infection, although repeatedly her tests were negative. My attempt to reassure her yesterday going through all her lab works has failed and therefore we transferred her here to consult the couples therapist and perhaps a psychiatrist. HARI JARRETT MD DR: STEPHANIE/lalitha JOB#: [id number] / [id number]
[2019-11-21 10:33] VITALS: BP 130/75
[2019-11-21] MEDS: AMOXICILLIN 250 MG CAPSULE. PO SCH ×2 (13:00→21:09)
[2019-11-21] MEDS: CLARITHROMYCIN 500 MG TABLET. PO SCH (13:00)
[2019-11-21 15:24] VITALS: BP 115/60
--- NOTE | 2019-11-21 16:56 | NUR ---
SW following. SW consulted for high risk discharge. Spoke with RN and reviewed chart. Pt is COVID positive. Pt from home. Pt on room air. GI consulted per abdominal pain. SW coordinated care with Dr. Hendrix. Pt will discharge home when stable. SW will continue following.
--- NOTE | 2019-11-21 16:56 | RAD ---
Examination: ABDOMEN COMPLETE History: Reason: epigastric pain s/p op harry 2016 - Covid pending / Spl. Instructions: / History: Comparison/Correlation: 02/08/2018 abdominal ultrasound exam Findings: Upper abdominal ultrasound exam was performed. Fatty infiltration of the liver is present. Portal venous flow is unremarkable. Cholecystectomy noted. Liver length is 19 cm. Right kidney measures up to 9.9 cm longitudinal. Left kidney measures up to 11.2 cm longitudinal. Normal renal contours and echotexture noted. No hydronephrosis or definite nephrolithiasis. No ascites. Pancreas is obscured by bowel gas. Spleen measures 12.5 longitudinal. Abdominal aorta and inferior vena cava are not well visualized but appear grossly unremarkable proximally. Impression: Fatty infiltration of the liver, hepatomegaly. No acute process. Electronically signed by: Juan J Mcgill MD (11/21/2019 4:53 PM) [id number]
[2019-11-21] MEDS: LUBIPROSTONE 24 MCG CAPSULE PO SCH (17:12)
[2019-11-21 19:00] VITALS: BP 108/62
--- NOTE | 2019-11-21 19:57 | PDOC1 ---
History & Psych Evaluation Date of Admission: Date of Admission DATE: 11/21/19 TIME: 19:40 Source: Source: Caregiver, Chart review, Patient Identification: Identification She is a 49-year-old female with history of depression admitted with chest pain. Chief Complaint: Chief Complaint Anxiety, depression, chest pain. History of Present Illness: HPI: She is a 49-year-old female admitted with chest pain. She has been referred from [facility]. Reportedly she was exposed to COVID-19 as her daughter who works in nursing facility came to stay with her and found to have COVID. Reportedly, since then she had multiple COVID test done which turned out to be negative. So far, cardiac evaluation is negative for cardiac chest pain. However, patient has other multiple medical issues including GERD. Upon interview she is appears nervous, anxious, and restless. At times, she is loud. Stating she is not anxious at all. COVID tests were done not upon her request. States, she has history of depression starting last year when her . She was a started on Effexor likely 150 mg XR and bumped up to 225 mg. In addition to that she is taking Wellbutrin XL 150 mg for smoking cessation. Chart review is consistent with some delusional thinking and nervousness. Interestingly patient categorically denies anxiety and periodically said that she is not anxious at all. States, her depression has reasonably under control and wanting to taper off her medications. She denies history of auditory or visual hallucinations or psychotic break. No evidence of cailin or hypomania. Denies history of bipolar mood disorder. Denies major trauma. Denies suicidal or homicidal thoughts intent or plan. Past Psychiatric History: History of depression and anxiety diagnosed when her last year. She denies history of psychiatric hospital admission. She denies history of suicidal or homicidal thoughts or suicidal attempt. Past Medical History: History of anxiety Hypertension Hyperlipidemia Asthma GERD Diabetic gastroparesis. DM 2 Family History: Denies family history of psychiatric illness or suicide. 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 She is ma rried and lives with her and stepdaughter. She smokes using Wellbutrin XL for smoking cessation. Denies alcohol abuse or illicit substance use. No legal issues reported Current Medications: Current Medications Current Medications Medications (Trade) Dose Ordered Sig/Shane Start Time Stop Time Status Last Admin Dose Admin Acetaminophen (Tylenol) 650 mg PRN Q4HRS PRN 11/20/19 22:45 11/20/19 23:51 650 MG Acetaminophen/ Hydrocodone Bitart (Lortab 5/325) 1 tab PRN Q4HRS PRN 11/20/19 22:45 11/21/19 17:13 1 TAB Amoxicillin (Amoxil) 1,000 mg BID 11/21/19 13:00 11/21/19 13:00 1,000 MG Bupropion HCl (Wellbutrin Sr) 150 mg BID 11/21/19 09:00 11/21/19 10:08 150 MG Clarithromycin (Biaxin) 500 mg BID 11/21/19 13:00 11/21/19 13:00 500 MG Docusate Sodium (Colace) 300 mg DAILY 11/21/19 09:00 11/21/19 10:08 300 MG Erythromycin (E-Mycin) 250 mg BID 11/21/19 09:00 11/21/19 12:19 DC 11/21/19 07:18 250 MG Isosorbide Mononitrate (Imdur) 30 mg DAILY 11/21/19 09:00 11/21/19 10:09 30 MG Lubiprostone (Amitiza) 24 mcg BIDWMEALS 11/21/19 17:00 11/21/19 17:12 24 MCG Metoprolol Tartrate (Lopressor) 25 mg BID 11/21/19 09:00 11/21/19 10:09 25 MG Nicotine (Nicoderm Cq 14mg) 1 patch DAILY 11/20/19 23:30 11/21/19 07:21 1 PATCH Non-Formulary Medication (Empagliflozin (Jardiance)) 10 mg DAILY 11/21/19 09:00 UNV Non-Formulary Medication (Lysine (L-Lysine)) 1 tab DAILY 11/21/19 09:00 UNV Non-Formulary Medication (Potassium Gluconate ) 90 mg DAILY 11/21/19 09:00 UNV Ondansetron HCl (Zofran) 4 mg PRN Q4HRS PRN 11/20/19 22:45 11/21/19 11:39 4 MG Pantoprazole Sodium (Protonix) 40 mg BIDAC 11/21/19 07:30 11/21/19 17:12 40 MG Sodium Chloride 1,000 ml @ 100 mls/hr Q10H 11/21/19 01:00 11/21/19 10:12 100 MLS/HR Venlafaxine HCl (Effexor) 75 mg TID 11/21/19 09:00 11/21/19 13:56 75 MG Allergies: Allergies: Coded Allergies: No Known Drug Allergies (Unverified , 02/09/18) Mental Status Examination: Mental Status Examination female appears her stated age, fairly groomed fairly nourished Initially resistant with the interview, later she became engaged. Alert and oriented Thought processes concrete Denies suicidal or homicidal thoughts. Denies auditory or visual hallucinations Mood is anxious Affect is dysphoric Insight is fair Impulse control is fair Judgment is fair Attention span and concentration fair Recent and remote memory intact ROS: 12 point review of system is negative except for sore throat, hoarseness, anxiety, depression, chest pain. Physical Exam: Refer to Physician's note. BRUSHER WARP: No focal deficit MSK: No EPS, TDK, or abnormal involuntary movements Vitals: Vitals Vital Signs Date Time Temp Pulse Resp B/P (MAP) Pulse Ox O2 Delivery O2 Flow Rate FiO2 11/21/19 17:13 99 Room Air 11/21/19 15:24 98.3 66 17 115/60 (78) 98.3 Labs: Labs Laboratory Tests Test 11/21/19 05:25 11/21/19 16:59 White Blood Count 7.7 x10^3/uL (4.0-11.0) Red Blood Count 3.81 x10^6/uL (3.50-5.40) Hemoglobin 12.4 g/dL (12.0-15.5) Hematocrit 35.6 % (36.0-47.0) Mean Corpuscular Volume 93 fL (79-100) Mean Corpuscular Hemoglobin 33 pg (25-35) Mean Corpuscular Hemoglobin Concent 35 g/dL (31-37) Red Cell Distribution Width 13.6 % (11.5-14.5) Platelet Count 279 x10^3/uL (140-400) Neutrophils (%) (Auto) 47 % (31-73) Lymphocytes (%) (Auto) 45 % (24-48) Monocytes (%) (Auto) 7 % (0-9) Eosinophils (%) (Auto) 0 % (0-3) Basophils (%) (Auto) 1 % (0-3) Neutrophils # (Auto) 3.6 x10^3/uL (1.8-7.7) Lymphocytes # (Auto) 3.5 x10^3/uL (1.0-4.8) Monocytes # (Auto) 0.5 x10^3/uL (0.0-1.1) Eosinophils # (Auto) 0.0 x10^3/uL (0.0-0.7) Basophils # (Auto) 0.1 x10^3/uL (0.0-0.2) D-Dimer (Clare) < 0.27 ug/mlFEU Sodium Level 140 mmol/L (136-145) Potassium Level 4.0 mmol/L (3.5-5.1) Chloride Level 106 mmol/L (98-107) Carbon Dioxide Level 24 mmol/L (21-32) Anion Gap 10 (6-14) Blood Urea Nitrogen 21 mg/dL (7-20) Creatinine 1.0 mg/dL (0.6-1.0) Estimated GFR (Cockcroft-Gault) 58.7 BUN/Creatinine Ratio 21 (6-20) Glucose Level 188 mg/dL (70-99) Calcium Level 8.4 mg/dL (8.5-10.1) Total Bilirubin 0.1 mg/dL (0.2-1.0) Aspartate Amino Transf (AST/SGOT) 11 U/L (15-37) Alanine Aminotransferase (ALT/SGPT) 17 U/L (14-59) Alkaline Phosphatase 62 U/L (46-116) C-Reactive Protein, Quantitative 1.3 mg/L (0-3.3) Total Protein 6.4 g/dL (6.4-8.2) Albumin 3.2 g/dL (3.4-5.0) Albumin/Globulin Ratio 1.0 (1.0-1.7) Glucose (Fingerstick) 113 mg/dL (70-99) Laboratory Tests Test 11/21/19 05:25 11/21/19 16:59 White Blood Count 7.7 x10^3/uL (4.0-11.0) Red Blood Count 3.81 x10^6/uL (3.50-5.40) Hemoglobin 12.4 g/dL (12.0-15.5) Hematocrit 35.6 % (36.0-47.0) Mean Corpuscular Volume 93 fL (79-100) Mean Corpuscular Hemoglobin 33 pg (25-35) Mean Corpuscular Hemoglobin Concent 35 g/dL (31-37) Red Cell Distribution Width 13.6 % (11.5-14.5) Platelet Count 279 x10^3/uL (140-400) Neutrophils (%) (Auto) 47 % (31-73) Lymphocytes (%) (Auto) 45 % (24-48) Monocytes (%) (Auto) 7 % (0-9) Eosinophils (%) (Auto) 0 % (0-3) Basophils (%) (Auto) 1 % (0-3) Neutrophils # (Auto) 3.6 x10^3/uL (1.8-7.7) Lymphocytes # (Auto) 3.5 x10^3/uL (1.0-4.8) Monocytes # (Auto) 0.5 x10^3/uL (0.0-1.1) Eosinophils # (Auto) 0.0 x10^3/uL (0.0-0.7) Basophils # (Auto) 0.1 x10^3/uL (0.0-0.2) D-Dimer (Clare) < 0.27 ug/mlFEU Sodium Level 140 mmol/L (136-145) Potassium Level 4.0 mmol/L (3.5-5.1) Chloride Level 106 mmol/L (98-107) Carbon Dioxide Level 24 mmol/L (21-32) Anion Gap 10 (6-14) Blood Urea Nitrogen 21 mg/dL (7-20) Creatinine 1.0 mg/dL (0.6-1.0) Estimated GFR (Cockcroft-Gault) 58.7 BUN/Creatinine Ratio 21 (6-20) Glucose Level 188 mg/dL (70-99) Calcium Level 8.4 mg/dL (8.5-10.1) Total Bilirubin 0.1 mg/dL (0.2-1.0) Aspartate Amino Transf (AST/SGOT) 11 U/L (15-37) Alanine Aminotransferase (ALT/SGPT) 17 U/L (14-59) Alkaline Phosphatase 62 U/L (46-116) C-Reactive Protein, Quantitative 1.3 mg/L (0-3.3) Total Protein 6.4 g/dL (6.4-8.2) Albumin 3.2 g/dL (3.4-5.0) Albumin/Globulin Ratio 1.0 (1.0-1.7) Glucose (Fingerstick) 113 mg/dL (70-99) Diagnosis: Diagnosis: Major depressive disorder, recurrent, mild to moderate Unspecified anxiety disorder. Rule out illness anxiety disorder. Assessment: She is a female who appears anxious. She has a history of anxiety and depression started after the of her last year. With respect to depression, she feels not to be on antidepressants anymore including Effexor. Takes Wellbutrin for smoking cessation. Bellows Tester is in agreement as Wellbutrin and Effexor in combination could be very anxiogenic and distressing. She agrees to reduce the dose of Effexor XR to 150 and gradually to DC. Will replace Effexor with Zoloft which is relatively well tolerated. Plan: Reduced dose of Effexor XR to 150 mg daily. Continue Wellbutrin XL 150 mg for smoking cessation as patient wants to continue it. Will consider replacing Effexor with Zoloft. Risk, benefits, alternatives of the treatment are discussed. She is in agreement with plan and voiced understanding. Adverse drug reactions including but not limited to withdrawal symptoms with reduce Effexor dose, suicidality, black box warning are discussed. BEATRICE MURPHY MD Nov 21, 2019 19:57
[2019-11-21 23:00] VITALS: BP 119/65
[2019-11-22] MEDS: CLARITHROMYCIN 500 MG TABLET. PO SCH ×3 (00:19→20:58)
[2019-11-22 03:00] VITALS: BP 121/67
[2019-11-22 07:30] VITALS: BP 145/92
[2019-11-22] MEDS: IV NORMAL SALINE 1000ML BAG 1,000 ML IV SCH ×2 (08:49→18:21)
[2019-11-22] MEDS: HYDROcodone/APAP 5/325MG 1 TAB TABLET PO PRN ×3 (08:50→22:56)
[2019-11-22] MEDS: PANTOPRAZOLE 40 MG TABLET.DR. PO SCH ×2 (08:50→17:07)
[2019-11-22] MEDS: NICOTINE 14MG PATCH. TD SCH (08:50)
[2019-11-22] MEDS: ISOSORBIDE MONONITRATE ER 30 MG TAB.ER.24H PO SCH (08:50)
[2019-11-22] MEDS: buPROPion SR 150 MG TABLET.SA PO SCH ×2 (08:50→20:58)
[2019-11-22] MEDS: AMOXICILLIN 250 MG CAPSULE. PO SCH ×2 (08:50→20:58)
[2019-11-22] MEDS: DOCUSATE SODIUM 100 MG CAPSULE. PO SCH (08:50)
[2019-11-22] MEDS: LUBIPROSTONE 24 MCG CAPSULE PO SCH ×2 (08:51→17:07)
[2019-11-22] MEDS: METOPROLOL TART IMMED RELEASE 25 MG TABLET. PO SCH ×2 (08:51→20:58)
[2019-11-22] MEDS: VENLAFAXINE 75 MG TABLET. PO SCH ×3 (08:51→20:58)
[2019-11-22] MEDS: NON FORMULARY ITEM (Empagliflozin (Jardiance) 10 MG) PO SCH (09:00)
[2019-11-22 11:10] VITALS: BP 95/58
--- NOTE | 2019-11-22 12:03 | PDOC ---
Subjective: Subjective: Not good. Pain in middle of chest/upper abdomen radiation around left breast, also felt in back. Now reports normal GES at [facility] prior to gastroparesis diagnosis on EGD. Wants to know if she has an ulcer again. Says she was treated twice for H. pylori last time (says second round successful) and doesn't know if she wants more treatment - I told her treatment was started yesterday - she says okay to continue. Stooled just a little. Objective: Objective: Reviewed psych note - anxiety, depression - medications adjusted/changed. COVID testing still pending per nurse. Vital Signs: Vital Signs Date Time Temp Pulse Resp B/P (MAP) Pulse Ox O2 Delivery O2 Flow Rate FiO2 11/22/19 11:10 97.3 66 18 95/58 (70) 96 Room Air 97.3 Labs: Laboratory Tests Test 11/21/19 16:59 11/21/19 21:15 11/22/19 08:09 Glucose (Fingerstick) 113 mg/dL 179 mg/dL 124 mg/dL Imaging: Abd US 11/20 Impression: Fatty infiltration of the liver, hepatomegaly. No acute process. PE: GEN: NAD - was asleep LUNGS: CTAB HEART: RRR ABD: epigastric discomfort tracking under left breast NEURO/PSYCH: A & O 3 A/P: ACP H/o Adelfo, H. pylori, ?gastroparesis, constipation, s/p cholecystectomy Anxiety/depression R/o COVID-19 -- She has many questions/concerns - will review any additional inpatient GI recs w/ Dr. Pizano. ?repeat GES Try Relistor since taking Lortab. Justicifation of Admission Dx: Justifications for Admission: Justification of Admission Dx: Yes MARA SHEPARD Nov 22, 2019 12:03
[2019-11-22] MEDS ORDERED: METHYLNALTREXONE 12 MG/0.6 ML VIAL. SQ ONE (12:15)
[2019-11-22] MEDS ORDERED: POLYETHYLENE GLYCOL 3350 17 GM PACKET. PO PRN (12:15)
--- NOTE | 2019-11-22 12:45 | PN ---
DATE: SUBJECTIVE: Continued to complain that she is not feeling well. She has pain in the middle of her chest and upper abdomen. She has also pain in her back. She continued to talk about her gastroparesis and also Helicobacter pylori and she was apparently started already on treatment for Helicobacter pylori by the Gastroenterology team. She is now on amoxicillin and clarithromycin as well as Protonix. She also has problem with constipation and apparently she has an order for Relistor. OBJECTIVE: GENERAL: On examining her, she looked well and was clearly in no apparent respiratory distress. No pallor, jaundice, cyanosis or thyromegaly. No jugular venous distention. No lower limb edema. VITAL SIGNS: Her heart rate was 66, blood pressure was 95/58, temperature was 97.3, respiratory rate was 18 and oxygen saturation was 96%. The rest of clinical exam is stable, has not really changed. LABORATORY DATA: As of yesterday showed a white cell count of 7700, hemoglobin 12, hematocrit 36, MCV 93, and platelet count 279,000. Her chemistry was also normal. Her C-reactive protein was only 1.3. Her D-dimer was only 0.27. PLAN: Obviously to continue with current medications. Once automotive upholsterer feels that she is ready to be discharged, we will discharge her home. HARI JARRETT MD DR: STEPHANIE/lalitha JOB#: [id number] / [id number]
--- NOTE | 2019-11-22 13:36 | PDOC ---
F/U PHYSCH PROG NOTE Subjective: female seen for follow-up. Progress is reviewed with nursing staff. No major emotional blow or behavioral breakdown reported overnight. Stating, she is tolerating tapering of Effexor lot better. Denies withdrawal symptoms. She is in agreement to either continue lowest possible dose of Effexor. Or def er it to outpatient provider whether or not to and Zoloft once Effexor is discontinued. Denies overt depression or anxiety. Denies suicidal or homicidal thoughts. Denies auditory or visual hallucinations. Objective: Vital Signs: Vital Signs Date Time Temp Pulse Resp B/P (MAP) Pulse Ox O2 Delivery O2 Flow Rate FiO2 11/22/19 11:10 97.3 66 18 95/58 (70) 96 Room Air 97.3 Labs: Laboratory Tests Test 11/21/19 16:59 11/21/19 21:15 11/22/19 08:09 Glucose (Fingerstick) 113 mg/dL (70-99) H 179 mg/dL (70-99) H 124 mg/dL (70-99) H Medications: Current Medications Medications (Trade) Dose Ordered Sig/Shane Start Time Stop Time Status Last Admin Dose Admin Acetaminophen (Tylenol) 650 mg PRN Q4HRS PRN 11/20/19 22:45 11/20/19 23:51 650 MG Acetaminophen/ Hydrocodone Bitart (Lortab 5/325) 1 tab PRN Q4HRS PRN 11/20/19 22:45 11/22/19 08:50 1 TAB Amoxicillin (Amoxil) 1,000 mg BID 11/21/19 13:00 11/22/19 08:50 1,000 MG Bupropion HCl (Wellbutrin Sr) 150 mg BID 11/21/19 09:00 11/22/19 08:50 150 MG Clarithromycin (Biaxin) 500 mg BID 11/21/19 13:00 11/22/19 11:08 500 MG Docusate Sodium (Colace) 300 mg DAILY 11/21/19 09:00 11/22/19 08:50 300 MG Erythromycin (E-Mycin) 250 mg BID 11/21/19 09:00 11/21/19 12:19 DC 11/21/19 07:18 250 MG Isosorbide Mononitrate (Imdur) 30 mg DAILY 11/21/19 09:00 11/22/19 08:50 30 MG Lubiprostone (Amitiza) 24 mcg BIDWMEALS 11/21/19 17:00 11/22/19 08:51 24 MCG Methylnaltrexone [place] (Relistor) 12 mg 1X ONCE 11/22/19 12:15 11/22/19 12:16 DC 11/22/19 12:24 12 MG Metoprolol Tartrate (Lopressor) 25 mg BID 11/21/19 09:00 11/22/19 08:51 25 MG Nicotine (Nicoderm Cq 14mg) 1 patch DAILY 11/20/19 23:30 11/22/19 08:50 1 PATCH Non-Formulary Medication (Empagliflozin (Jardiance)) 10 mg DAILY 11/21/19 09:00 UNV Non-Formulary Medication (Lysine (L-Lysine)) 1 tab DAILY 11/21/19 09:00 UNV Non-Formulary Medication (Potassium Gluconate ) 90 mg DAILY 11/21/19 09:00 UNV Ondansetron HCl (Zofran) 4 mg PRN Q4HRS PRN 11/20/19 22:45 11/21/19 11:39 4 MG Pantoprazole Sodium (Protonix) 40 mg BIDAC 11/21/19 07:30 11/22/19 08:50 40 MG Polyethylene Glycol (miraLAX PACKET) 17 gm PRN DAILY PRN 11/22/19 12:15 Sodium Chloride 1,000 ml @ 100 mls/hr Q10H 11/21/19 01:00 11/22/19 08:49 100 MLS/HR Venlafaxine HCl (Effexor) 75 mg TID 11/21/19 09:00 11/22/19 08:51 75 MG Physical Exam: Mental Status Exam: female appears her stated age, fairly groomed fairly nourished Initially resistant with the interview, later she became engaged. Alert and oriented Thought processes concrete Denies suicidal or homicidal thoughts. Denies auditory or visual hallucinations Mood is better Affect is constricted Insight is fair Impulse control is fair Judgment is fair Attention span and concentration fair Recent and remote memory intac Physical Exam: Refer to Physician's note. PETS AND PET SUPPLIES SALESPERSON: No focal deficit MSK: No EPS, TDK, or abnormal involuntary movements Diagnosis: Major depressive disorder, recurrent, mild to moderate Unspecified anxiety disorder. Rule out illness anxiety disorder. Assessment: She is a female who appears anxious. She has a history of anxiety and depression started after the of her last year. With respect to depression, she feels not to be on antidepressants anymore including Effexor. Takes Wellbutrin for smoking cessation. Check Clerk is in agreement as Wellbutrin and Effexor in combination could be very anxiogenic and distressing. She agrees to reduce the dose of Effexor XR to 150 and gradually to DC. Will replace Effexor with Zoloft which is relatively well tolerated. She is tolerating medication changes. She is in agreement to either continue lowest possible dose of Effexor or replace with Zoloft. However, tapering can be continued as outpatient. Defer addition of Zoloft to outpatient provider. Plan: Effexor XR to 150 mg daily. Tolerating reduced dose denies any withdrawal symptoms. Defer further tapering of Effexor to outpatient psychiatrist. Continue Wellbutrin XL 150 mg for smoking cessation as patient wants to continue it. Defer addition of Zoloft if required to outpatient psychiatrist. Risk, benefits, alternatives of the treatment are discussed. She is in agreement with plan and voiced understanding. Adverse drug reactions including but not limited to withdrawal symptoms with reduce Effexor dose, suicidality, black box warning are discussed. BEATRICE MURPHY MD Nov 22, 2019 13:36
[2019-11-22 14:42] VITALS: BP 122/74
--- NOTE | 2019-11-22 17:37 | NUR ---
SW following. Reviewed chart and spoke with RN and CM. Pt from home and will return at discharge. Coordinated care with Dr. Hendrix. SANDRA to continue following.
[2019-11-22 19:00] VITALS: BP 128/71
[2019-11-22] MEDS: LACTOBACILLUS RHAMNOSUS GG 1 CAPSULE. PO SCH (20:58)
[2019-11-22 22:54] VITALS: BP 114/66
[2019-11-23] MEDS: IV NORMAL SALINE 1000ML BAG 1,000 ML IV SCH (02:41)
[2019-11-23 02:54] VITALS: BP 129/83
[2019-11-23 07:00] VITALS: BP 119/69
[2019-11-23] MEDS: NON FORMULARY ITEM (Empagliflozin (Jardiance) 10 MG) PO SCH (09:00)
[2019-11-23] MEDS: METOPROLOL TART IMMED RELEASE 25 MG TABLET. PO SCH (10:18)
[2019-11-23] MEDS: CLARITHROMYCIN 500 MG TABLET. PO SCH (10:19)
[2019-11-23] MEDS: buPROPion SR 150 MG TABLET.SA PO SCH (10:19)
[2019-11-23] MEDS: AMOXICILLIN 250 MG CAPSULE. PO SCH (10:19)
[2019-11-23] MEDS: LACTOBACILLUS RHAMNOSUS GG 1 CAPSULE. PO SCH (10:19)
[2019-11-23] MEDS: ISOSORBIDE MONONITRATE ER 30 MG TAB.ER.24H PO SCH (10:19)
[2019-11-23] MEDS: NICOTINE 14MG PATCH. TD SCH (10:20)
[2019-11-23] MEDS: VENLAFAXINE 75 MG TABLET. PO SCH (10:20)
[2019-11-23] MEDS: PANTOPRAZOLE 40 MG TABLET.DR. PO SCH (10:20)
[2019-11-23] MEDS: LUBIPROSTONE 24 MCG CAPSULE PO SCH (10:21)
[2019-11-23] MEDS: DOCUSATE SODIUM 100 MG CAPSULE. PO SCH (10:22)
--- NOTE | 2019-11-23 11:30 | PDOC ---
Subjective: Subjective: Stooled after Relistor. Feels the same. Objective: Objective: Per nurse - COVID-19 negative again, plans to DC. C/o same left-sided pain under breast. Called by Dr. Hendrix re: H. pylori tx. Vital Signs: Vital Signs Date Time Temp Pulse Resp B/P (MAP) Pulse Ox O2 Delivery O2 Flow Rate FiO2 11/23/19 10:19 60 119/69 11/23/19 07:00 97.6 17 96 Room Air 97.6 PE: GEN: NAD LUNGS: CTAB HEART: RRR ABD: tender under left breast NEURO/PSYCH: A & O 3 A/P: ACP H/o Adelfo, H. pylori, ?gastroparesis (e-mycin currently held), constipation, s/p cholecystectomy Anxiety/depression COVID-19 negative through [facility] per nurse -- Dc per primary on PPI and H. pylori treatment. Continue treatment for constipation. Follow-up for outpt EGD and screening colonoscopy - our office will arrange. Justicifation of Admission Dx: Justifications for Admission: Justification of Admission Dx: Yes MARA SHEPARD Nov 23, 2019 11:30
[2019-11-23 11:58] VITALS: BP 140/61
--- NOTE | 2019-11-23 12:49 | DS ---
DATE OF DISCHARGE: 11/23/2019 HOSPITAL COURSE: The patient was transferred from [facility] because of chest pain that was extensively investigated, has had 3 sets of cardiac enzymes, they were negative. Her D-dimer was negative and CRP was negative. Chest x-ray was unremarkable, but she continued to be complaining of severe pain, claiming that it is related to her Helicobacter pylori and diabetic gastroparesis. She was extremely delusional and was convinced that she has COVID-19 infection, although it was tested multiple times and was negative. Anyhow, she was swabbed in the Emergency Room of [facility] and was transferred to [facility] where she was seen by the wide area network systems administrator. She was started on clarithromycin and amoxicillin for eradication of Helicobacter pylori and arrangement was made for her to have an upper GI endoscopy sometime next week. She was seen in consultation by the psychiatrist and he recommended to taper down the Effexor XR 250 and gradually discontinued it and replaced Effexor with Zoloft, which is relatively well tolerated. PHYSICAL EXAMINATION: GENERAL: When I saw her today, she looked well and was clearly in no apparent respiratory distress. No pallor, jaundice, cyanosis or thyromegaly. No jugular venous distention. No limb edema. VITAL SIGNS: Her heart rate was 60, blood pressure was 119/69, temperature was 97.6, respiratory rate was 17 and O2 saturation was 96%. The rest of clinical exam is stable, has not changed. LABORATORY WORK: Showed white cell count was normal at 7700, hemoglobin 12, hematocrit 36, MCV 93, and platelet count 279,000. Serum sodium was 140, potassium 4, chloride 106, bicarbonate 24, anion gap of 10, BUN of 21, creatinine 1, estimated GFR was 59 mL per minute. Her glucose was 188, calcium was 8.4. Total bilirubin, AST, ALT, alkaline phosphatase are normal. Total protein was 6.4, albumin was 3.2. C-reactive protein is 1.3. Her D-dimer was again less than 0.27. DISCHARGE MEDICATIONS: She was discharged home to continue lactobacillus rhamnosus 1 capsule twice a day, polyethylene glycol 17 g daily, Amitiza 24 mcg twice a day, amoxicillin 1000 mg twice a day for 2 weeks, clarithromycin 500 mg twice a day for 2 weeks, venlafaxine 75 mg 3 times a day and Wellbutrin-SR 150 mg once a day, Effexor 75 mg twice a day and continue with Wellbutrin 150 mg twice a day, metoprolol 25 mg twice a day, isosorbide mononitrate 30 mg daily, Protonix 40 mg twice a day for 2 weeks and then once a day and Nicoderm patch 14 mg topically once a day and hydrocodone/APAP 5/325 one tablet every 4 hours as needed. FINAL DISCHARGE DIAGNOSES: 1. Atypical chest pain, acute myocardial infarction was ruled out. 2. Hypertension. 3. Hyperlipidemia. 4. Bronchial asthma. 5. Gastroesophageal reflux disease. 6. Type 2 diabetes mellitus with diabetic gastroparesis, history of Helicobacter gastritis and severe anxiety and depression. HARI JARRETT MD DR: STEPHANIE/lalitha JOB#: [id number] / [id number]
--- NOTE | 2019-11-23 14:33 | NUR ---
Discharge Note: JULES VANCE Discharge instructions and discharge home medications reviewed with Patient and a copy given. All questions have been answered and understanding verbalized. The following instructions and handouts were given: patient visit report, education information, education. Discontinued lines and drains: peripheral IV, tip intact. Patient discharged to home with self care via private vehicle. Patient left unit awake, in stable condition, with all personal belongings. Patient decided she did not want to wait in room for ride, walked patient to main entrance. Patient is aware if she needs medical attention she must check in through the ED.
--- NOTE | 2019-11-23 17:08 | NUR ---
SW following. Reviewed chart and spoke with RN. Coordinated care with Dr. Hendrix and pt to discharge home today. No SW needs.
[2020-01-04] MEDS ORDERED: LUBI8CAP4 PO (08:14)
[2020-01-04] MEDS ORDERED: SERT25TA PO (08:16)
== END 2019-11-23 14:35 | disposition home or self-care (01) | DRG 313 ==
LOC: 6 SOUTH 21:07
PROVIDERS: ADMIT Internal Medicine; ATTEND Internal Medicine
DX: R07.89 Other chest pain (principal); E11.43 Type 2 diabetes mellitus with diabetic autonomic (poly)neuropathy; K31.84 Gastroparesis; E78.5 Hyperlipidemia, unspecified; F17.210 Nicotine dependence, cigarettes, uncomplicated; F22 Delusional disorders; F41.9 Anxiety disorder, unspecified; I10 Essential (primary) hypertension; J44.9 Chronic obstructive pulmonary disease, unspecified; K21.9 Gastro-esophageal reflux disease without esophagitis; K59.00 Constipation, unspecified; K76.0 Fatty (change of) liver, not elsewhere classified; K81.1 Chronic cholecystitis; Z86.19 Personal history of other infectious and parasitic diseases; Z87.11 Personal history of peptic ulcer disease; Z90.49 Acquired absence of other specified parts of digestive tract; Z79.4 Long term (current) use of insulin; F32.9 Major depressive disorder, single episode, unspecified; Z20.828 Contact with and (suspected) exposure to other viral communicable diseases
CPT/HCPCS: 36415; 76700; 80053; 82962; 85025; 85379; 86140; J2212; J2405; J7030; G0378

== ENCOUNTER → 2020-01-01 | Outpatient (CLI) | payer BC ==
[~2020-01-01] MED LIST changes: +BUPR100T11 PO; +DOCU-109 PO; +EMPA10TA PO; +ERYT250C33 PO; +LUBI8CAP4 PO; +LYSI500T8 PO; +PANT40TA77 PO; +POTA90TA2 PO; +SERT25TA PO; +VENL75TA PO
== END | disposition home or self-care (01) ==
LOC: LAB 14:19
PROVIDERS: ATTEND Internal Medicine Gastroenterology
DX: Z01.818 Encounter for other preprocedural examination (principal); Z11.59 Encounter for screening for other viral diseases; R07.89 Other chest pain; K21.9 Gastro-esophageal reflux disease without esophagitis
CPT/HCPCS: U0003-CS

== ENCOUNTER → 2020-01-04 | Day surgery (SDC) | payer BC ==
[~2020-01-04] MED LIST changes: +HYDROmorphone 2 MG/ML VIAL IV PRN; +IV RINGERS,LACTATED 1000ML 1,000 ML IV SCH; +LIDOCAINE 2% PF 5 ML VIAL. ONE; +MORPHINE SULFATE 2 MG/ML VIAL. IV PRN; +PROCHLORPERAZINE 10 MG/2 ML VIAL. IV PRN; +PROPOFOL 10 MG/ML (20ML) VIAL. IV ONE
[2020-01-04 09:22] VITALS: BP 111/71
--- NOTE | 2020-01-04 09:24 | CONS ---
DATE OF CONSULTATION: 01/04/2020 REASON FOR CONSULTATION: Change in bowel habits, atypical chest pain, and gastroesophageal reflux disease. HISTORY OF PRESENT ILLNESS: A 49-year-old female with past medical history significant for COPD, glucose intolerance, hyperlipidemia, status post cholecystectomy, status post endometrial ablation, tubal ligation is seen after being in the hospital with cough and voice weakness. The patient has continued symptoms despite medical therapy. She has had negative cardiac workup including normal electrocardiogram, electrocardiogram and cardiac enzymes. She does have a history of gastric ulcers as well as gastroparesis. Interval EGD is recommended as she has been on erythromycin and PPI b.i.d. without improvement. In addition, colorectal screening is recommended due to age. There has been some change in bowel habits with no bleeding. There is no family history of colon cancer, colon polyps and she is otherwise without additional complaints. PAST MEDICAL HISTORY: Prediabetes, hyperlipidemia, COPD, gastroesophageal reflux disease, and gastroparesis. ALLERGIES: None. MEDICATIONS: Include albuterol, Jardiance, Amitiza, metoprolol, pantoprazole, and Zoloft. SOCIAL HISTORY: She is a smoker, nondrinker. FAMILY HISTORY: Significant as noted. PAST SURGICAL HISTORY: Status post knee surgery, cholecystectomy, wisdom tooth extraction, and endometrial ablation. REVIEW OF SYSTEMS: Per records. PHYSICAL EXAMINATION: GENERAL: Reveals a well-nourished, well-developed female. VITAL SIGNS: Pulse is 80, respiratory rate is 15, blood pressure 130/75. LUNGS: Clear. CARDIOVASCULAR: Reveals an S1, S2 without S3, S4 or appreciable murmur. ABDOMEN: Reveals a soft abdomen, normal bowel sounds, without appreciable hepatosplenomegaly. EXTREMITIES: Reveals no cyanosis, clubbing or edema. IMPRESSION AND RECOMMENDATIONS: 1. Gastroesophageal reflux disease with breakthrough symptoms, atypical chest pain, and history of gastroparesis. EGD is recommended to further assess her continued symptoms. Risks and benefits discussed. The patient is willing to proceed. 2. Change in bowel habits. Colorectal screening is warranted as well as interval colonoscopy. OLAMDIE JORGE MD DR: BRANDON/lalitha JOB#: [id number] / [id number]
--- NOTE | 2020-01-08 14:07 | PATHOLOGY ---
[facility] Accession Number: [id number] . 01 Material submitted: . esophagus - DISTAL ESOPHAGUS BX. Modifiers: distal . 01 Clinical history: . GERD, ATYPICAL CHEST PAIN . 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 - Negative for intestinal metaplasia, dysplasia, and malignancy. - Please see comment. LBQ 01/08/2020 1308 Local . 02 Comment: Pancreatic acinar metaplasia can be seen in several clinical settings including with chronic gastric carditis, proton pump inhibitor use and NSAID use. Please correlate clinically. (MLK/db; 01/07/2020) . 02 Electronically signed: . Dat Steele MD, Pathologist NPI- [id number] . 01 Gross description: . The specimen is received in formalin, labeled "Campbell, Vladimir, distal esophagus BX" and consists of multiple fragments of pink-doran tissue measuring 0.8 x 0.6 x 0.2 cm in aggregate which are entirely submitted in A1. (SDY; 01/04/2020) SYU/SYU 01/04/2020 1707 Local . 02 Pathologist provided ICD-10: K21.0, R07.89 . 02 CPT . 725065 Specimen Comment: A courtesy copy of this report has been sent to [phone] Specimen Comment: [id number] Specimen Comment: Report sent to / DR HOOD Performed at: 01 [facility] [address], [place], [place] [id number] MD Clive Holt MD Phone: [phone] Performed at: 02 [facility] [address] [place], [place] [id number] MD Rafa Martinez MD Phone: [phone]
== END | disposition home or self-care (01) ==
LOC: ENDOS 07:51
PROVIDERS: ATTEND Internal Medicine Gastroenterology
DX: R19.4 Change in bowel habit (principal); K64.0 First degree hemorrhoids; K21.0 Gastro-esophageal reflux disease with esophagitis; K29.50 Unspecified chronic gastritis without bleeding; K31.84 Gastroparesis; K31.89 Other diseases of stomach and duodenum; E78.5 Hyperlipidemia, unspecified; J44.9 Chronic obstructive pulmonary disease, unspecified; R73.03 Prediabetes; F17.210 Nicotine dependence, cigarettes, uncomplicated; Z90.49 Acquired absence of other specified parts of digestive tract; Z79.899 Other long term (current) drug therapy; Z98.890 Other specified postprocedural states
CPT/HCPCS: 43239; 45378; J2704; 88305

== ENCOUNTER → 2020-02-27 | Outpatient (CLI) | payer BC ==
[2020-01-04 09:22] VITALS: BP 111/71
[~2020-02-27] MED LIST changes: -HYDROmorphone 2 MG/ML VIAL IV PRN; -IV RINGERS,LACTATED 1000ML 1,000 ML IV SCH; -LIDOCAINE 2% PF 5 ML VIAL. ONE; -MORPHINE SULFATE 2 MG/ML VIAL. IV PRN; -PROCHLORPERAZINE 10 MG/2 ML VIAL. IV PRN; -PROPOFOL 10 MG/ML (20ML) VIAL. IV ONE
--- NOTE | 2020-02-27 12:52 | KCIC ---
CLINICAL HISTORY: Reason: Abdominal pain, hx gastroparesis, constipation. COMPARISON: None TECHNIQUE: Fluoroscopically-guided small bowel follow-through performed with barium contrast FINDINGS: Space Operations Officer: Initial plain film of the abdomen reveals large volume colonic stool content throughout the colon. Cholecystectomy clips are seen. The serial films of barium traversing the small bowel to the cecum reveal a decrease transit time. Contrast material is present in the colon after 15 minutes. Small bowel mucosal pattern and caliber is normal throughout. There is no evidence of obstruction or filling defect. The terminal ileum appears normal. Normal transit time of 15 minutes. Fluoroscopy time: 11 seconds. IMPRESSION: 1. Decreased small bowel transit time with contrast material present within the colon by the 15 minute image 2. No obstruction. Electronically signed by: Tom Landaverde MD (02/27/2020 12:49 PM) [id number]
== END ==
LOC: KCIC 08:11
PROVIDERS: ATTEND Internal Medicine Gastroenterology
DX: R09.89 Other specified symptoms and signs involving the circulatory and respiratory systems (principal); R10.9 Unspecified abdominal pain
CPT/HCPCS: 74250

== ENCOUNTER 2021-05-14 12:40 | Emergency (ER) | payer BC, OTHER ==
[~2021-05-14] VITALS: Ht 165.1 cm; Wt 98.6 kg
[~2021-05-14 12:40] MED LIST changes: -ISOS30TA4 PO; +ISOS30TA68 PO
--- NOTE | 2021-05-14 13:14 | EKG ---
[facility] [address] [place] [address] Test Date: 2021-05-14 Test Time: 12:48:30 Pat Name: JULES VANCE Department: Room: Gender: F Log Grader: : 1970 Requested By: FARIHA MARADIAGA Order Number: [id number] Reading MD: Moose Merritt Measurements Intervals Bradford Rate: 69 P: 34 ME: 138 QRS: 24 QRSD: 70 T: 22 QT: 370 QTc: 398 Interpretive Statements SINUS RHYTHM NORMAL ECG Electronically Signed On 05-17-2021 12:13:03 SCIENCE TUTOR by Moose Merritt
[2021-05-14] MEDS ORDERED: ASPIRIN CHEWABLE 81 MG TABLET. PO ONE (13:15)
[2021-05-14] MEDS ORDERED: IV NORMAL SALINE 500ML BAG 500 ML IV ONE (13:15)
--- NOTE | 2021-05-14 13:33 | ED.ADGEN ---
Past Medical History Past Medical History: Asthma, GERD, Hypertension, Other Additional Past Medical Histor: GASTROPARESIS,COVID-03 MAY 2021,MYOCARDIAL BRIDGE Past Surgical History: Knee Replacement, Tubal ligation, Other Additional Past Surgical Histo: LEFT ROTATOR CUFF,UTERINE ABLATION Smoking Status: Current Every Day Smoker Additional Information: 0.5 PPD Alcohol Use: Occasionally Drug Use: None General Adult EDM: Chief Complaint: SHORTNESS OF BREATH HPI: HPI: Patient is a 50 year old female coming in for chest pain that started yesterday. Patient states that she was diagnosed with COVID-April 23 patient states she has not recovered. Review of Systems: Review of Systems: All other systems within normal limits except for as noted in the HPI Current Medications: Current Medications Medications (Trade) Dose Ordered Sig/Shane Start Time Stop Time Status Last Admin Dose Admin Aspirin (Aspirin Chewable) 324 mg 1X ONCE 05/14/21 13:15 05/14/21 13:16 DC 05/14/21 13:34 324 MG Info (CONTRAST GIVEN -- Rx MONITORING) 1 each PRN DAILY PRN 05/14/21 15:30 05/16/21 15:29 Iohexol (Omnipaque 350 Mg/ml) 100 ml 1X ONCE 05/14/21 15:30 05/14/21 15:31 DC 05/14/21 15:35 100 ML Multi-Ingredient Mouthwash/Gargle (Gi Cocktail) 20 ml 1X ONCE 05/14/21 16:15 05/14/21 16:16 DC 05/14/21 16:24 20 ML Ondansetron HCl (Zofran) 4 mg 1X ONCE 05/14/21 15:00 05/14/21 15:01 DC 05/14/21 14:53 4 MG Sodium Chloride 1,000 ml @ 1,000 mls/hr 1X ONCE 05/14/21 14:45 05/14/21 15:44 DC 05/14/21 14:52 1,000 MLS/HR Allergies: Allergies: Allergies Coded Allergies Type Severity Reaction Last Updated Verified No Known Drug Allergies 01/04/20 No Physical Exam: PE: Constitutional: Well developed, well nourished, no acute distress, non-toxic appearance. [] HENT: Normocephalic, atraumatic, bilateral external ears normal, nose normal. [] Eyes: PERRLA, conjunctiva normal, no discharge. [] Neck: No rigidity, supple, no stridor. [] Cardiovascular: Regular rate and rhythm, brisk cap refill [] Lungs & Thorax: Non labored symmetric respirations, no tachypnea or respiratory distress [] Abdomen: Soft, nondistended. Skin: Warm, dry, no erythema, no rash. [] Back: Unremarkable Extremities: No deformities, range of motion grossly intact, no lower extremity edema [] Neurologic: Alert and oriented X 3, no focal deficits noted. [] Psychologic: Affect normal, judgement normal, mood normal. [] Current Patient Data: Labs: Laboratory Tests Test 05/14/21 13:22 05/14/21 13:50 05/14/21 14:45 05/14/21 14:55 Influenza Type A Antigen Negative (NEGATIVE) Influenza Type B Antigen Negative (NEGATIVE) SARS-CoV-2 Antigen (Rapid) Negative (NEGATIVE) White Blood Count 11.5 x10^3/uL (4.0-11.0) H Red Blood Count 4.35 x10^6/uL (3.50-5.40) Hemoglobin 13.4 g/dL (12.0-15.5) Hematocrit 40.2 % (36.0-47.0) Mean Corpuscular Volume 93 fL (79-100) Mean Corpuscular Hemoglobin 31 pg (25-35) Mean Corpuscular Hemoglobin Concent 33 g/dL (31-37) Red Cell Distribution Width 13.6 % (11.5-14.5) Platelet Count 332 x10^3/uL (140-400) Neutrophils (%) (Auto) 59 % (31-73) Lymphocytes (%) (Auto) 33 % (24-48) Monocytes (%) (Auto) 5 % (0-9) Eosinophils (%) (Auto) 1 % (0-3) Basophils (%) (Auto) 1 % (0-3) Neutrophils # (Auto) 6.8 x10^3/uL (1.8-7.7) Lymphocytes # (Auto) 3.9 x10^3/uL (1.0-4.8) Monocytes # (Auto) 0.6 x10^3/uL (0.0-1.1) Eosinophils # (Auto) 0.1 x10^3/uL (0.0-0.7) Basophils # (Auto) 0.2 x10^3/uL (0.0-0.2) D-Dimer (Clare) < 0.27 ug/mlFEU Lactic Acid Level 2.6 mmol/L (0.4-2.0) H Urine Collection Type Unknown Urine Color Venecia Urine Clarity Clear Urine pH 5.5 (<5.0-8.0) Urine Specific [place] >=1.030 (1.000-1.030) Urine Protein 30 mg/dL (NEG-TRACE) Urine Glucose (UA) 100 mg/dL (NEG) Urine Ketones (Stick) Negative mg/dL (NEG) Urine Blood Negative (NEG) Urine Nitrite Negative (NEG) Urine Bilirubin Small (NEG) Urine Urobilinogen Dipstick 0.2 mg/dL (0.2 mg/dL) Urine Leukocyte Esterase Negative (NEG) Urine RBC 0 /HPF (0-2) Urine WBC Occ /HPF (0-4) Urine Squamous Epithelial Cells Mod /LPF Urine Bacteria 0 /HPF (0-FEW) Urine Mucus Mod /LPF Sodium Level 141 mmol/L (136-145) Potassium Level 4.7 mmol/L (3.5-5.1) Chloride Level 103 mmol/L (98-107) Carbon Dioxide Level 27 mmol/L (21-32) Anion Gap 11 (6-14) Blood Urea Nitrogen 21 mg/dL (7-20) H Creatinine 0.8 mg/dL (0.6-1.0) Estimated GFR (Cockcroft-Gault) 75.6 BUN/Creatinine Ratio 26 (6-20) H Glucose Level 234 mg/dL (70-99) H Calcium Level 9.0 mg/dL (8.5-10.1) Total Bilirubin 0.3 mg/dL (0.2-1.0) Aspartate Amino Transferase (AST) 26 U/L (15-37) Alanine Aminotransferase (ALT) 56 U/L (14-59) Alkaline Phosphatase 77 U/L (46-116) Troponin I High Sensitivity 5 ng/L (4-50) HI-Esf-C-Type Natriuretic Peptide 49 pg/mL (0-124) Total Protein 7.1 g/dL (6.4-8.2) Albumin 3.3 g/dL (3.4-5.0) L Albumin/Globulin Ratio 0.9 (1.0-1.7) L Laboratory Tests 05/14/21 13:50 Laboratory Tests 05/14/21 14:55 Vital Signs: Vital Signs Date Time Temp Pulse Resp B/P (MAP) Pulse Ox O2 Delivery O2 Flow Rate FiO2 05/14/21 15:41 137/89 (105) Room Air 05/14/21 15:30 64 18 05/14/21 12:42 97.4 99 97.4 EKG: EKG: Sinus rhythm, heart rate 60 beats minute, normal axis, no ST elevation or depression, no ectopy [] Heart Score: C/O Chest Pain: Yes HEART Score for Chest Pain: HEART Score for Chest Pain Response (Comments) Value History Slighlty/Non-Suspicious 0 ECG Nonspecific Repolarizatio 1 Age >45 - < 65 1 Risk Factors 1 or 2 Risk Factors 1 Troponin < Normal Limit 0 Total 3 Risk Factors: Risk Factors: DM, Current or recent (<one month) smoker, HTN, HLP, family history of CAD, obesity. Risk Scores: Score 0 - 3: 2.5% MACE over next 6 weeks - Discharge Home Score 4 - 6: 20.3% MACE over next 6 weeks - Admit for Clinical Observation Score 7 - 10: 72.7% MACE over next 6 weeks - Early Invasive Strategies Radiology/Procedures: Radiology/Procedures: [][facility] [address] [place] [address] IMAGING REPORT Signed PATIENT: JULES VANCE ACCOUNT: [id number] : 1970 LOCATION: ER AGE: 50 SEX: F EXAM STATUS: REG ER ORD. PHYSICIAN: FARIHA MARADIAGA MD REASON: chest pain, SOA, COUGH PROCEDURE: CT ANGIOGRAPHY CHEST EXAM: CT angiography of the chest with intravenous contrast. HISTORY: Chest pain. Shortness of breath. Cough. TECHNIQUE: Computed tomographic images of the chest were obtained following the administration of intravenous contrast according to angiography protocol. Multiplanar reformatting was performed and three dimensional maximum intensity projection images were obtained. *One or more of the following individualized dose reduction techniques were utilized for this examination: 1. Automated exposure control. 2. Adjustment of the mA and/or kV according to patient size. 3. Use of iterative reconstruction technique. COMPARISON: 05/02/2021. FINDINGS: There is no evidence of pulmonary embolism. The heart is normal in size. The aorta is normal in caliber. There is an aberrant right subclavian artery and the left vertebral artery originates directly from the aortic arch, an arch branching variant. There are nonspecific mediastinal and hilar lymph n odes. These are likely physiologic or reactive. There is no pneumothorax or pleural effusion. There is focal emphysematous change or cluster of pulmonary cyst within the medial left upper lobe. There is a suspected partially calcified granuloma within the lateral right upper lobe measuring 6 mm. There is a 1 mm groundglass nodular opacity at the right lung apex, likely benign based on size. There is no acute finding involving the upper abdomen. There is suspected hepatic steatosis and hepatomegaly. IMPRESSION: 1. No pulmonary embolism or alternative acute thoracic finding. 2. Tiny benign nodular opacity at the right lung apex and benign-appearing renal within the right upper lobe. 3. Hepatomegaly and hepatic steatosis. Electronically signed by: Adriana Campbell MD (05/14/2021 4:02 PM) [id number] DICTATED and SIGNED BY: ADRIANA CAMPBELL MD DATE: 05/14/21 [id number] Course & Med Decision Making: Course & Med Decision Making Pertinent Labs and Imaging studies reviewed. (See chart for details) [] Dragon Disclaimer: Dragon Disclaimer: This electronic medical record was generated, in whole or in part, using a voice recognition dictation system. Departure Departure Impression: Primary Impression: Cough Additional Impressions: Chest pain Dehydration Disposition: 01 HOME / SELF CARE / HOMELESS Condition: STABLE Referrals: ASHELY HOOD DRY KILN LOADER (PCP) Patient Instructions: Cough, Adult Scripts Benzonatate (BENZONATATE) 200 Mg Capsule 1 CAP PO PRN TID PRN for cough for 7 Days, #21 CAP 0 Refills Prov: FARIHA MARADIAGA MD 05/14/21 Albuterol Sulfate (PROAIR HFA INHALER) 8.5 Gm Hfa.aer.ad 2 PUFF IH PRN Q4-6HRS PRN for wheezing for 21 Days, #1 INHALER 0 Refills Prov: FARIHA MARADIAGA MD 05/14/21 Problem Qualifiers FARIHA MARADIAGA MD May 14, 2021 13:33
[2021-05-14 14:00] LABS: INFLUENZA A PATIENT NEGATIVE (NEGATIVE); INFLUENZA B PATIENT NEGATIVE (NEGATIVE)
[2021-05-14 14:18] LABS: BASO # 0.2 x10^3/uL (0.0-0.2); BASO % 1 % (0-3); EOS # 0.1 x10^3/uL (0.0-0.7); EOS % 1 % (0-3); HEMATOCRIT 40.2 % (36.0-47.0); HEMOGLOBIN 13.4 g/dL (12.0-15.5); LYMPH # 3.9 x10^3/uL (1.0-4.8); LYMPH % 33 % (24-48); MEAN CORPUSCULAR HEMOGLOBIN 31 pg (25-35); MEAN CORPUSCULAR HGB CONC 33 g/dL (31-37); MEAN CORPUSCULAR VOLUME 93 fL (79-100); MONO # 0.6 x10^3/uL (0.0-1.1); MONO % 5 % (0-9); NEUT # 6.8 x10^3/uL (1.8-7.7); NEUT % 59 % (31-73); PLATELET COUNT 332 x10^3/uL (140-400); RED BLOOD COUNT 4.35 x10^6/uL (3.50-5.40); RED CELL DISTRIBUTION WIDTH 13.6 % (11.5-14.5); WHITE BLOOD COUNT 11.5 x10^3/uL (4.0-11.0)
[2021-05-14] MEDS ORDERED: IV NORMAL SALINE 1000ML BAG 1,000 ML IV ONE (14:45)
[2021-05-14 14:56] LABS: BILIRUBIN,URINE SMALL (NEG); CLARITY,URINE CLEAR; COLOR,URINE AMBER; NITRITE,URINE NEGATIVE (NEG); PH,URINE 5.5 (<5.0-8.0); PROTEIN,URINE 30 mg/dL (NEG-TRACE); UROBILINOGEN,URINE 0.2 mg/dL (0.2 mg/dL)
[2021-05-14] MEDS ORDERED: ONDANSETRON PF 4 MG/2 ML VIAL. IVP ONE (15:00)
[2021-05-14 15:02] LABS: BACTERIA,URINE 0 /HPF (0-FEW); RBC,URINE 0 /HPF (0-2); WBC,URINE OCC /HPF (0-4)
[2021-05-14 15:18] LABS: CREATININE 0.8 mg/dL (0.6-1.0); GFR 75.6; POTASSIUM 4.7 mmol/L (3.5-5.1)
[2021-05-14 15:23] LABS: ALBUMIN 3.3 g/dL (3.4-5.0); ALBUMIN/GLOBULIN RATIO 0.9 (1.0-1.7); TOTAL BILIRUBIN 0.3 mg/dL (0.2-1.0); TOTAL PROTEIN 7.1 g/dL (6.4-8.2)
[2021-05-14] MEDS ORDERED: IOHEXOL 350 MG/ML 100 ML VIAL. IV ONE (15:30)
[2021-05-14] MEDS ORDERED: CONTRAST GIVEN. MC PRN (15:30)
--- NOTE | 2021-05-14 16:04 | RAD ---
EXAM: CT angiography of the chest with intravenous contrast. HISTORY: Chest pain. Shortness of breath. Cough. TECHNIQUE: Computed tomographic images of the chest were obtained following the administration of int ravenous contrast according to angiography protocol. Multiplanar reformatting was performed and three dimensional maximum intensity projection images were obtained. *One or more of the following individualized dose reduction techniques were utilized for this examina tion: 1. Automated exposure control. 2. Adjustment of the mA and/or kV according to patient size. 3. Use of iterative reconstruction technique. COMPARISON: 05/02/2021. FINDINGS: There is no evidence of pulmonary embolism. The heart is normal in size. The aorta is santiago l in caliber. There is an aberrant right subclavian artery and the left vertebral artery originates d irectly from the aortic arch, an arch branching variant. There are nonspecific mediastinal and hilar lymph nodes. These are likely physiologic or reactive. There is no pneumothorax or pleural effusion. There is focal emphysematous change or cluster of pulmo nary cyst within the medial left upper lobe. There is a suspected partially calcified granuloma withi n the lateral right upper lobe measuring 6 mm. There is a 1 mm groundglass nodular opacity at the rig ht lung apex, likely benign based on size. There is no acute finding involving the upper abdomen. The re is suspected hepatic steatosis and hepatomegaly. IMPRESSION: 1. No pulmonary embolism or alternative acute thoracic finding. 2. Tiny benign nodular opacity at the right lung apex and benign-appearing renal within the right upp er lobe. 3. Hepatomegaly and hepatic steatosis. Electronically signed by: Adriana Reyes MD (05/14/2021 4:02 PM) [id number]
[2021-05-14] MEDS ORDERED: LIDO:MAALOX 1:1 20 ML SINGLE DOSE. SWSW ONE (16:15)
[2021-05-14] MEDS ORDERED: ALBU2.5V8 IH (16:56)
[2021-05-14] MEDS ORDERED: BENZ200C47 PO (16:56)
[2021-05-14] MEDS ORDERED: KETOROLAC 30 MG/ML VIAL. IVP ONE (17:00)
[2021-05-14 17:05] VITALS: BP 157/76
--- NOTE | 2021-05-15 14:09 | NUR ---
IP: Informed pt of negative covid test. Pt verbalized understanding.
== END 2021-05-14 17:20 | disposition home or self-care (01) ==
LOC: ER 12:40
DX: R07.89 Other chest pain (principal); E86.0 Dehydration; Z20.822 Contact with and (suspected) exposure to COVID-19; K21.9 Gastro-esophageal reflux disease without esophagitis; I10 Essential (primary) hypertension; J45.909 Unspecified asthma, uncomplicated; F17.200 Nicotine dependence, unspecified, uncomplicated
CPT/HCPCS: 36415; 71275; 80053; 81001; 83605; 83880; 84484; 85025; 85379; 87426; 87804; 93005; 96361; 96374; 96375; 99285; J1885; J2405; J7030; J7040; Q9967; U0003; U0005